=== PATIENT | female | born 1955 | race Caucasian/White ===

== ENCOUNTER 2019-05-14 07:00 | Emergency (ER) | payer OTHER ==
--- NOTE | 2019-05-14 07:38 | RAD REPORT ---
EXAM DESCRIPTION: CT - Ct Stroke Brain Wo Cont - 05/14/2019 7:26 am CLINICAL HISTORY: aphasia COMPARISON: none TECHNIQUE: Computed axial tomography of the head was obtained. All CT scans are performed using dose optimization technique as appropriate and may include automated exposure control or mA/KV adjustment according to patient size. FINDINGS: An intracranial bleed is not seen . The ventricles are normal in caliber. No extra-axial fluid collection is noted. Fluid within the sinuses/ mastoids is not seen. IMPRESSION: No acute intracranial abnormality is seen. If patient's symptoms persist MRI of the bra in would be recommended. Corrina of the emergency room was notified at 7:32 a.m. May 14, 2019
[2019-05-14 07:44] LABS: Absolute Lymphocytes (CBC) 2.5 K/uL (0.7-4.9); Basophils % 0.4 % (0-1.3); Eosinophils % 5.2 % (0-4.4); Hematocrit 48.1 % (36.0-45.0); Lymphocytes % 36.3 % (15.3-44.8); MPV 9.9 fL (7.6-11.3); RBC Red Blood Cell Count 5.34 M/uL (3.86-4.86)
[2019-05-14 07:48] LABS: Protime INR 1.02
[2019-05-14 08:09] LABS: ALT/SGPT 40 U/L (12-78); AST/SGOT 27 U/L (15-37); Albumin 3.9 g/dL (3.4-5.0); Alkaline Phosphatase 44 U/L (45-117); BUN Blood Urea Nitrogen 10 mg/dL (7-18); Bicarbonate 30 mmol/L (21-32); Bilirubin Direct 0.2 mg/dL (0-0.2); Bilirubin Total 0.4 mg/dL (0.2-1.0); CKMB Creatine Kinase MB < 1.0 ng/mL (0.3-3.6); Creatine Phosphokinase 52 U/L (26-192); Glucose Level 120 mg/dL (74-106); Lipase 251 U/L (73-393); Potassium 3.6 mmol/L (3.5-5.1); Protein, Total 8.5 g/dL (6.4-8.2); Sodium Level 137 mmol/L (136-145)
[2019-05-14 08:10] LABS: Thyroid Stimulating Hormone 15.5 uIU/mL (0.360-3.740)
--- NOTE | 2019-05-14 08:10 | RAD REPORT ---
EXAM DESCRIPTION: CTHead angio05/14/2019 7:53 am CLINICAL HISTORY: aphasia COMPARISON: None TECHNIQUE: CT angiogram of the head was obtained. 3D MIPS reconstruction performed. All CT scans are performed using dose optimization technique as appropriate and may include automated exposure control or mA/KV adjustment according to patient size. FINDINGS: The basilar, internal carotid, anterior cerebral, middle cerebral and posterior cerebral a rteries are normal caliber. An aneurysm is not seen. origin right posterior cerebral artery A significant stenosis is not noted. IMPRESSION: Unremarkable CT angiogram head.
--- NOTE | 2019-05-14 08:16 | RAD REPORT ---
EXAM DESCRIPTION: Blanca Angio05/14/2019 7:54 am CLINICAL HISTORY: aphasia COMPARISON: None TECHNIQUE: 50 cc Isovue 370 was administered intravenously. 3D MIP reconstruction performed All CT scans are performed using dose optimization technique as appropriate and may include automated exposure control or mA/KV adjustment according to patient size. FINDINGS: Bovine aorta. Left common carotid artery is tortuous. Minimal plaque within carotid arteries. Significant stenosis is not noted. The vertebral arteries are codominant without abnormality. IMPRESSION: No significant abnormality displayed. NASCET criteria used. Mild 0-49% stenosis Moderate 50-69% stenosis Severe 70-99% stenosis
--- NOTE | 2019-05-14 08:18 | RAD REPORT ---
EXAM DESCRIPTION: Mariana Single View05/14/2019 8:04 am CLINICAL HISTORY: Code stroke. Aphasia COMPARISON: none FINDINGS: The lungs appear clear of acute infiltrate. The heart is normal size IMPRESSION: No acute abnormalities displayed
[2019-05-14] MEDS ORDERED: ASPIRIN 81 MG CHEWABLE TABLET ONE (08:41)
--- NOTE | 2019-05-14 08:56 | ER ---
Nurse's Notes [facility] Name: Ryann Spence Age: 63 yrs Sex: Female : 1955 Arrival Date: 05/14/2019 Time: 07:01 Bed 13 Private MD: Diagnosis: Headache;Ischemic stroke;Volume depletion Presentation: 05/14 07:07 Presenting complaint: Patient states: headache X 5 days, woke up this morning and felt iw like she had a hard time speaking, pt states she woke up about an hour to two hours ago, went to bed at 1230 last night and she still had a headache but speech was normal, woke up this morning and still had the headache, noticed that she had a hard time texting her daughter at 0559 this morning, then noticed that she was having difficulty saying the right word, feels like she knows what she wants to say but can't find the right word. Transition of care: patient was not received from another setting of care. Pre-hospital glucose is not applicable to this patient. Onset of symptoms was May 14, 2019. Risk Assessment: Do you want to hurt yourself or someone else? Patient reports no desire to harm self or others. Initial Sepsis Screen: Does the patient meet any 2 criteria? No. Patient's initial sepsis screen is negative. Does the patient have a suspected source of infection? No. Patient's initial sepsis screen is negative. Care prior to arrival: None. 07:07 Method Of Arrival: Ambulatory 07:07 Acuity: WILLIAM 2 Triage Assessment: 07:34 The onset of the patients symptoms was May 14, 2019 at 00:30. Headache History: The iw patient has had previous headaches and this one is different than previous episodes, and this one is more severe than previous episodes. Stroke Activation: Symptom onset > 6 hours Physician: Stroke Attending; Name: ; Notified At: ; Arrived At: Physician: Chief Stroke Resident; Name: ; Notified At: ; Arrived At: Physician: Stroke Resident; Name: ; Notified At: ; Arrived At: Physician: ED Attending; Name: ; Notified At: ; Arrived At: Physician: ED Resident; Name: ; Notified At: ; Arrived At: Historical: - Allergies: 07:33 Sulfa (Sulfonamide Antibiotics); iw - Home Meds: 08:00 metoprolol succinate 50 mg oral Tb24 1 tab once daily [Active]; Premarin 0.45 mg Oral rb1 tab 1 tab once daily [Active]; rabeprazole 20 mg oral TbEC 1 tab once daily [Active]; venlafaxine 150 mg oral cp24 1 cap once daily [Active]; Synthroid 112 mcg Oral tab 1 tab once daily [Active]; atorvastatin 20 mg oral tab 1 tab once daily [Active]; losartan-hydrochlorothiazide 50-12.5 mg oral tab 1 tab once daily [Active]; Zyrtec 10 mg Oral cap [Active]; flaxseed oil 1,000 mg oral cap [Active]; Hair,Skin and Nails oral tab [Active]; turmeric curcumin 550 mg [Active]; Carmenza Aspirin 120 mg oral tab 1 tab once daily [Active]; Lutein blue [Active]; Livatone Plus [Active]; B complex-minerals oral oral [Active]; melatonin 5 mg Oral cap [Active]; Vitamin D3 oral oral [Active]; pantoprazole 40 mg oral TbEC 1 tab once daily [Active]; Centrum Silver oral oral [Active]; potassium gluconate 550 mg (90 mg) oral tab [Active]; Mag Ox [Active]; cyclobenzaprine 10 mg Oral tab 2 tab Bedtime [Active]; TruBiotics [Active]; 08:00 Metformin Oral [Active]; rb1 - PMHx: 08:00 Hypertension; Headaches; Hypothyroidism; rb1 08:00 Diabetes - NIDDM; rb1 - PSHx: 08:00 Cholecystectomy; Partial Hysterectomy; Tonsillectomy; rb1 - Immunization history:: Adult Immunizations up to date. - Ebola Screening: : Patient negative for fever greater than or equal to 101.5 degrees Fahrenheit, and additional compatible Ebola Virus Disease symptoms Patient denies exposure to infectious person Patient denies travel to an Ebola-affected area in the 21 days before illness onset No symptoms or risks identified at this time. - Social history:: Smoking status: Patient/guardian denies using tobacco. Screenin:53 Abuse screen: Denies threats or abuse. Denies injuries from another. Nutritional iw screening: No deficits noted. Tuberculosis screening: No symptoms or risk factors identified. Fall Risk IV access (20 points). 08:15 Patient has been NPO before screening. The patient is alert, able to follow commands. rb1 The patient does not exhibit slurred or garbled speech The patient is not exhibiting difficulty speaking. The patient does not exhibit difficulty understanding words. The patient is able to swallow own secretions with no drooling or need for suction. Patient tolerated one teaspoon of water. No drooling, immediate coughing, gurgling, or clearing of the throat was noted. The patient tolerated 90mL of water. No drooling, immediate coughing, gurgling, or clearing of the throat was noted. The patient passed the bedside swallow screening. Oral medications may be given as ordered. Contact Physician for further diet orders. Provider notified of bedside swallow screening results: Salomón Bhatia MD. Assessment: 07:10 VAN Scoring: Arm Drift: Patients demonstrates NO arm weakness. Patient is VAN Negative. iw 07:15 General: Appears in no apparent distress. comfortable, Behavior is calm, cooperative, rb1 talkative. Pain: Complains of pain in right faith and right side of forehead Pain radiates to neck Pain currently is 10 out of 10 on a pain scale. Neuro: Level of Consciousness is awake, alert, obeys commands, Oriented to person, place, time, situation, Speech Pt. stumbles over her words or finding the appropriate words, but speech is clear and understood.. Cardiovascular: Capillary refill < 3 seconds is brisk in bilateral fingers. Respiratory: Airway is patent Respiratory effort is even, unlabored, Respiratory pattern is regular, symmetrical. GI: Reports nausea, vomiting, since Wednesday05/13/19. : No signs and/or symptoms were reported regarding the genitourinary system. Derm: Skin is pink, warm \T\ dry. Musculoskeletal: Range of motion: intact in all extremities, Daughter reports that her mother ambulated into the ED from the parking lot. 07:45 T-PA (Activase) Screening: Indications: Treatment will start within 4.5 hours onset of rb1 symptoms: No. 07:46 Reassessment: pt transported to radiology via stretcher, with ODETTE Yee. iw 08:04 Reassessment: pt back to bed 13. iw 08:15 Patient has been NPO before screening. The patient is alert, and able to follow rb1 commands. The patient does not exhibit slurred or garbled speech. The patient is not exhibiting difficulty speaking. The patient does not exhibit difficulty understanding words. The patient is able to swallow own secretions with no drooling or need for suction. Patient tolerated one teaspoon of water. No drooling, immediate coughing, gurgling, or clearing of the throat was noted. The patient passed the bedside swallow screening. Oral medications may be given as ordered. Contact Physician for further diet orders. Provider notified of bedside swallow screening results: Salomón Bhatia MD. 08:39 Reassessment: Patient appears in no apparent distress at this time. Patient and/or rb1 family updated on plan of care and expected duration. Pain level reassessed. Patient is alert, oriented x 3, equal unlabored respirations, skin warm/dry/pink. Pt. is complaining of pain on the left side of her head. 09:00 Reassessment: Patient appears in no apparent distress at this time. Patient and/or rb1 family updated on plan of care and expected duration. Pain level reassessed. Patient is alert, oriented x 3, equal unlabored respirations, skin warm/dry/pink. Pt. c/o head hurting real bad. Provider notified. 09:15 Reassessment: Tried to call report to [facility] but was asked to call back in 10 rb1 minutes because the nurse was in a pt. room. 09:40 Reassessment: [facility] but ODETTE Wright was still not rb1 available. Yasmine in the transfer center reports that she told ODETTE Wright that she would have to receive report from EMS when they arrived because we could not delay transfer. 09:50 Reassessment: Gave report to ODETTE Wright. Information from the [facility] was given. All rb1 questions asked and answered. 10:00 Reassessment: Patient appears in no apparent distress at this time. Patient and/or rb1 family updated on plan of care and expected duration. Pain level reassessed. Patient is alert, oriented x 3, equal unlabored respirations, skin warm/dry/pink. 10:20 Reassessment: Gave report to [facility]. Information from the [facility] was given. All rb1 questions asked and answered. Vital Signs: 07:10 BP 160 / 115; Pulse 98; Resp 16; Pulse Ox 96% on R/A; iw 07:10 Weight 74.84 kg (R); Height 5 ft. 5 in. (165.10 cm) (R); rb1 07:45 BP 155 / 95; Pulse 94; Resp 18 S; Pulse Ox 96% on R/A; aa5 08:15 BP 159 / 109; Pulse 95; Resp 17; Temp 97.7(O); Pulse Ox 98% ; Pain 9/10; rb1 08:33 BP 176 / 98; Pulse 86; Resp 12; Temp 98.0(O); Pulse Ox 95% on R/A; Pain 8/10; rb1 08:45 BP 189 / 112; Pulse 80; Resp 15; Pulse Ox 96% on R/A; Pain 10/10; rb1 09:24 BP 164 / 94; Pulse 75; Resp 19; Pulse Ox 98% on R/A; Pain 10/10; rb1 09:58 BP 174 / 113; Pulse 72; Resp 20; Temp 98.2(O); Pulse Ox 97% on R/A; mh5 10:21 BP 185 / 88; Pulse 75; Resp 20; Temp 98.2(O); Pulse Ox 98% on R/A; Pain 8/10; rb1 07:10 Body Mass Index 27.46 (74.84 kg, 165.10 cm) rb1 [place] Coma Score: 07:10 Eye Response: spontaneous(4). Verbal Response: inappropriate words(3). Motor Response: rb1 obeys commands(6). Total: 13. 07:38 Eye Response: spontaneous(4). Verbal Response: oriented(5). Motor Response: obeys snw commands(6). Total: 15. 08:10 Eye Response: spontaneous(4). Verbal Response: inappropriate words(3). Motor Response: rb1 obeys commands(6). Total: 13. 09:10 Eye Response: spontaneous(4). Verbal Response: inappropriate words(3). Motor Response: rb1 obeys commands(6). Total: 13. 10:10 Eye Response: spontaneous(4). Verbal Response: inappropriate words(3). Motor Response: rb1 obeys commands(6). Total: 13. NIH Stroke Scale Scores: 07:17 NIHSS Score: 3 snw 07:54 NIHSS Score: 2 iw 10:00 NIHSS Score: 3 rb1 ED Course: 07:01 Patient arrived in ED. ds1 07:09 [facility]ins[facility] Sims [facility]-C [facility] snw 07:09 Salomón Bhatia MD is Attending Physician. snw 07:15 Patient has correct armband on for positive identification. Bed in low position. Call rb1 light in reach. Side rails up X2. ekg monitor on. Pulse ox on. NIBP on. Warm blanket given. 07:24 CT completed. Patient tolerated procedure well. Patient moved back from CT. bq 07:25 CT Stroke Brain w/o Contrast In Process Unspecified. EDMS 07:30 Initial lab(s) drawn, by me, sent to lab. Inserted saline lock: 20 gauge in right iw antecubital area, using aseptic technique. Blood collected. 07:33 Triage completed. iw 07:33 Arm band placed on. iw 07:42 initiated a transfer with Yasmine at the [facility] transfer center. eb 07:53 CT Head Angio In Process Unspecified. EDMS 07:53 CT Neck Angio In Process Unspecified. EDMS 07:[address] Jones the neurologist lactation consultant for [facility] with Dr. Bhatia for eb patient transfer consultation. 08:02 Stroke CXR 1 View In Process Unspecified. EDMS 08:09 Nakia Light, RN is Primary Nurse. rb1 08:30 EKG done, by ED staff, reviewed by Salomón Bhatia MD. mh5 08:45 connected the hospitalist lactation consultant for [facility] Dr. Quinones with Ainsley RODRIGUEZ for eb patient transfer consultation. 08:57 administrative approval given by Yasmine Ruvalcaba RN transfer coord/ patient has been eb accepted to [facility] 22 tower bed [address] Barclay. report to be called [phone]. 09:55 Urine collected: clean catch specimen, clear. mh5 09:56 UDS Sent. mh5 10:31 No provider procedures requiring assistance completed. Patient transferred, IV remains rb1 in place. Administered Medications: 08:26 Drug: Aspirin Chewable Tablet 324 mg Route: PO; rb1 08:50 Follow up: Response: No adverse reaction rb1 08:55 Drug: foLIC Acid 1 mg Route: IVPB; Site: right antecubital; rb1 09:12 Follow up: Response: No adverse reaction; IV Status: Completed infusion rb1 09:12 Drug: NS 0.9% 1000 ml Route: IV; Rate: 75 ml/hr; Site: right antecubital; rb1 10:31 Follow up: IV Status: Infusion continued upon transfer rb1 09:12 Drug: fentaNYL (PF) 25 mcg Route: IVP; Site: right antecubital; rb1 09:30 Follow up: Response: No adverse reaction; Pain is decreased rb1 09:44 Drug: Zofran 4 mg Route: IVP; Site: right antecubital; rb1 10:00 Follow up: Response: No adverse reaction; Nausea is decreased rb1 Point of Care Testing: Blood Glucose: 07:25 Blood Glucose: 109 mg/dL; iw Ranges: Outcome: 08:54 ER care complete, transfer ordered by . snw 10:31 Patient left the ED. rb1 10:31 Transferred by ground EMS to [facility], Transfer form completed. rb1 10:31 Condition: stable 10:31 Instructed on the need for transfer. NIH Stroke Scale - NIH Stroke Score Date: 05/14/2019 Time: 07:17 Total Score = 3 1a. Level of Consciousness (LOC) - 0(Alert) 1b. Level of Consciousness (LOC) (Year \T\ Age) - 0(Both) 1c. LOC Commands (Open \T\ Closes Eyes/Professor Of Chemistry) - 0(Both) 2. Best Gaze (Lateral Gaze Paresis) - 0(Normal) 3. Visual Field Loss - 0(No visual loss) 4. Facial Palsy - 0(Normal) 5a. Left Arm: Motor (10-second hold) - 0(No drift) 5b. Right Arm: Motor (10-second hold) - 0(No drift) 6a. Left Leg: Motor (5-second hold - always test supine) - 0(No drift) 6b. Right Leg: Motor (5-second hold - always test supine) - 0(No drift) 7. Limb Ataxia (finger/nose \T\ heel/pena - test with eyes open) - 0(Absent) 8. Sensory Loss (pinprick arms/legs/face) - 0(Normal) 9. Best Language: Aphasia (description/naming/reading) - 2(Severe aphasia) 10. Dysarthria (speech clarity - read or repeat words) - 1(Mild to Moderate) 11. Extinction and Inattention (visual/tactile/auditory/spatial/personal) - 0(No abnormality) Initials: [facility] NIH Stroke Scale - NIH Stroke Score Date: 05/14/2019 Time: 07:54 Total Score = 2 1a. Level of Consciousness (LOC) - 0(Alert) 1b. Level of Consciousness (LOC) (Year \T\ Age) - 0(Both) 1c. LOC Commands (Open \T\ Closes Eyes/Professor Of Chemistry) - 0(Both) 2. Best Gaze (Lateral Gaze Paresis) - 0(Normal) 3. Visual Field Loss - 0(No visual loss) 4. Facial Palsy - 0(Normal) 5a. Left Arm: Motor (10-second hold) - 0(No drift) 5b. Right Arm: Motor (10-second hold) - 0(No drift) 6a. Left Leg: Motor (5-second hold - always test supine) - 0(No drift) 6b. Right Leg: Motor (5-second hold - always test supine) - 0(No drift) 7. Limb Ataxia (finger/nose \T\ heel/pena - test with eyes open) - 0(Absent) 8. Sensory Loss (pinprick arms/legs/face) - 0(Normal) 9. Best Language: Aphasia (description/naming/reading) - 1(Mild to moderate aphasia) 10. Dysarthria (speech clarity - read or repeat words) - 1(Mild to Moderate) 11. Extinction and Inattention (visual/tactile/auditory/spatial/personal) - 0(No abnormality) Initials: NIH Stroke Scale - NIH Stroke Score Date: 05/14/2019 Time: 10:00 Total Score = 3 1a. Level of Consciousness (LOC) - 0(Alert) 1b. Level of Consciousness (LOC) (Year \T\ Age) - 1(One) 1c. LOC Commands (Open \T\ Closes Eyes/Professor Of Chemistry) - 0(Both) 2. Best Gaze (Lateral Gaze Paresis) - 0(Normal) 3. Visual Field Loss - 0(No visual loss) 4. Facial Palsy - 0(Normal) 5a. Left Arm: Motor (10-second hold) - 0(No drift) 5b. Right Arm: Motor (10-second hold) - 0(No drift) 6a. Left Leg: Motor (5-second hold - always test supine) - 0(No drift) 6b. Right Leg: Motor (5-second hold - always test supine) - 0(No drift) 7. Limb Ataxia (finger/nose \T\ heel/pena - test with eyes open) - 0(Absent) 8. Sensory Loss (pinprick arms/legs/face) - 0(Normal) 9. Best Language: Aphasia (description/naming/reading) - 1(Mild to moderate aphasia) 10. Dysarthria (speech clarity - read or repeat words) - 1(Mild to Moderate) 11. Extinction and Inattention (visual/tactile/auditory/spatial/personal) - 0(No abnormality) Initials: rb1 Signatures: Dispatcher [employer] EDMS Levi, Ainsley, BATCH ANALYST-C BATCH ANALYST-Csnw Brock, Cally Aquino, Sarika ds1 Cynthia Boss RN RN iw Whit Phillips RN RN aa5 Nakia Light, RN RN rb1 Norah East 5 Nessa Major Corrections: (The following items were deleted from the chart) 07:47 07:07 Presenting complaint: Patient states: headache X 5 days, woke up this iw morning and felt like she had a hard time speaking, pt states she woke up about an hour ago, went to bed at 1230 last night and was normal iw 07:49 07:07 Presenting complaint: Patient states: headache X 5 days, woke up this iw morning and felt like she had a hard time speaking, pt states she woke up about an hour to two hours ago, went to bed at 1230 last night and she still had a headache but speech was normal, woke up this morning and still had the headache, also had a hard time texting her daughter at 0559 this morning iw
--- NOTE | 2019-05-14 08:56 | EDPHYS ---
Physician Documentation [facility] – [place], [place] Name: Ryann Spence Age: 63 yrs Sex: Female : 1955 Arrival Date: 05/14/2019 Time: 07:01 Bed 13 Private MD: ED Physician Salomón Bhatia HPI: 05/14 07:48 This 63 yrs old Female presents to ER via Ambulatory with complaints of snw Headache. 07:48 The patient complains of pain to the right side of forehead and right latter day. The snw patient describes the headache as aching, a pressure, unrelenting. Onset: The symptoms/episode began/occurred 5 day(s) ago, and became persistent. Associated signs and symptoms: Pertinent positives: malaise, nausea, vomiting. Severity of symptoms: At its worst the pain was moderate, severe, the "worst in my life". Headache History: Denies prior headaches. The patient has not experienced similar symptoms in the past. The patient has not recently seen a physician. pt has not taken BP meds in 4 days second to insurance changes, awoke this am 2 hours prior to arrival and then noted severe problems with getting thoughts to text or in speech, pt with misuse of words/ideas but is aware when the words come out that they are incorrect but just can't get the right ones out. Historical: - Allergies: 07:33 Sulfa (Sulfonamide Antibiotics); iw - Home Meds: 08:00 metoprolol succinate 50 mg oral Tb24 1 tab once daily [Active]; Premarin 0.45 mg Oral rb1 tab 1 tab once daily [Active]; rabeprazole 20 mg oral TbEC 1 tab once daily [Active]; venlafaxine 150 mg oral cp24 1 cap once daily [Active]; Synthroid 112 mcg Oral tab 1 tab once daily [Active]; atorvastatin 20 mg oral tab 1 tab once daily [Active]; losartan-hydrochlorothiazide 50-12.5 mg oral tab 1 tab once daily [Active]; Zyrtec 10 mg Oral cap [Active]; flaxseed oil 1,000 mg oral cap [Active]; Hair,Skin and Nails oral tab [Active]; turmeric curcumin 550 mg [Active]; Carmenza Aspirin 120 mg oral tab 1 tab once daily [Active]; Lutein blue [Active]; Livatone Plus [Active]; B complex-minerals oral oral [Active]; melatonin 5 mg Oral cap [Active]; Vitamin D3 oral oral [Active]; pantoprazole 40 mg oral TbEC 1 tab once daily [Active]; Centrum Silver oral oral [Active]; potassium gluconate 550 mg (90 mg) oral tab [Active]; Mag Ox [Active]; cyclobenzaprine 10 mg Oral tab 2 tab Bedtime [Active]; TruBiotics [Active]; 08:00 Metformin Oral [Active]; rb1 - PMHx: 08:00 Hypertension; Headaches; Hypothyroidism; rb1 08:00 Diabetes - NIDDM; rb1 - PSHx: 08:00 Cholecystectomy; Partial Hysterectomy; Tonsillectomy; rb1 - Immunization history:: Adult Immunizations up to date. - Ebola Screening: : Patient negative for fever greater than or equal to 101.5 degrees Fahrenheit, and additional compatible Ebola Virus Disease symptoms Patient denies exposure to infectious person Patient denies travel to an Ebola-affected area in the 21 days before illness onset No symptoms or risks identified at this time. - Social history:: Smoking status: Patient/guardian denies using tobacco. ROS: 07:45 Eyes: Negative for injury, pain, redness, and discharge, ENT: Negative for injury, snw pain, and discharge, Neck: Negative for injury, pain, and swelling, Cardiovascular: Negative for chest pain, palpitations, and edema, Respiratory: Negative for shortness of breath, cough, wheezing, and pleuritic chest pain, Abdomen/GI: Negative for abdominal pain, diarrhea, and constipation, +nausea and vomiting Back: Negative for injury and pain, : Negative for injury, bleeding, discharge, and swelling, MS/Extremity: Negative for injury and deformity, Skin: Negative for injury, rash, and discoloration, Psych: Negative for depression, anxiety, suicide ideation, homicidal ideation, and hallucinations. 07:45 Constitutional: Positive for fatigue, malaise, poor PO intake. 07:45 Neuro: Positive for headache, of the right side of forehead and right latter day, severe speech changes this am. Exam: 07:17 Head/Face: Normocephalic, atraumatic. Eyes: Pupils equal round and reactive to light, snw extra-ocular motions intact. Lids and lashes normal. Conjunctiva and sclera are non-icteric and not injected. Cornea within normal limits. Periorbital areas with no swelling, redness, or edema. 07:17 Neck: Trachea midline, no thyromegaly or masses palpated, and no cervical lymphadenopathy. Supple, full range of motion without nuchal rigidity, or vertebral point tenderness. No Meningismus. Chest/axilla: Normal chest wall appearance and motion. Nontender with no deformity. No lesions are appreciated. Cardiovascular: Regular rate and rhythm with a normal S1 and S2. No gallops, murmurs, or rubs. Normal PMI, no JVD. No pulse deficits. Respiratory: Lungs have equal breath sounds bilaterally, clear to auscultation and percussion. No rales, rhonchi or wheezes noted. No increased work of breathing, no retractions or nasal flaring. Abdomen/GI: Soft, non-tender, with normal bowel sounds. No distension or tympany. No guarding or rebound. No evidence of tenderness throughout. Back: No spinal tenderness. No costovertebral tenderness. Full range of motion. 07:17 Constitutional: The patient appears alert, awake, anxious, restless. 07:17 ENT: Exam is negative for 07:17 Skin: Turgor: is poor. 07:17 Neuro: Orientation: is normal, Mentation: able to follow commands, Memory: is normal, Cranial nerves: Speech is dysarthric, Cerebellar function: is grossly normal based on the patient's age, Gait: not tested. Babinski testing is normal, seizure activity, is not displayed by the patient, Abnormal movements: there are no abnormal movements. 07:17 Psych: Exam negative for Vital Signs: 07:10 BP 160 / 115; Pulse 98; Resp 16; Pulse Ox 96% on R/A; iw 07:10 Weight 74.84 kg (R); Height 5 ft. 5 in. (165.10 cm) (R); rb1 07:45 BP 155 / 95; Pulse 94; Resp 18 S; Pulse Ox 96% on R/A; aa5 08:15 BP 159 / 109; Pulse 95; Resp 17; Temp 97.7(O); Pulse Ox 98% ; Pain 9/10; rb1 08:33 BP 176 / 98; Pulse 86; Resp 12; Temp 98.0(O); Pulse Ox 95% on R/A; Pain 8/10; rb1 08:45 BP 189 / 112; Pulse 80; Resp 15; Pulse Ox 96% on R/A; Pain 10/10; rb1 09:24 BP 164 / 94; Pulse 75; Resp 19; Pulse Ox 98% on R/A; Pain 10/10; rb1 09:58 BP 174 / 113; Pulse 72; Resp 20; Temp 98.2(O); Pulse Ox 97% on R/A; mh5 10:21 BP 185 / 88; Pulse 75; Resp 20; Temp 98.2(O); Pulse Ox 98% on R/A; Pain 8/10; rb1 07:10 Body Mass Index 27.46 (74.84 kg, 165.10 cm) rb1 NIH Stroke Scale Scores: 07:17 NIHSS Score: 3 snw 07:54 NIHSS Score: 2 iw 10:00 NIHSS Score: 3 rb1 [place] Coma Score: 07:10 Eye Response: spontaneous(4). Verbal Response: inappropriate words(3). Motor Response: rb1 obeys commands(6). Total: 13. 07:38 Eye Response: spontaneous(4). Verbal Response: oriented(5). Motor Response: obeys snw commands(6). Total: 15. 08:10 Eye Response: spontaneous(4). Verbal Response: inappropriate words(3). Motor Response: rb1 obeys commands(6). Total: 13. 09:10 Eye Response: spontaneous(4). Verbal Response: inappropriate words(3). Motor Response: rb1 obeys commands(6). Total: 13. 10:10 Eye Response: spontaneous(4). Verbal Response: inappropriate words(3). Motor Response: rb1 obeys commands(6). Total: 13. MDM: 07:09 Patient medically screened. snw 07:15 Data reviewed: vital signs, nurses notes, lab test result(s), EKG. Data interpreted: snw Pulse oximetry: on room air is 96 %. Interpretation: acceptable. Counseling: I had a detailed discussion with the patient and/or guardian regarding: the historical points, exam findings, and any diagnostic results supporting the discharge/admit diagnosis, the presence of at least one elevated blood pressure reading (>120/80) during this emergency department visit, lab results, radiology results. Physician consultation: Salomón Bhatia MD was called at 07:15, was contacted at 07:15. 07:47 ED course: Difficult to discern when speech changes occurred, CTA ordered and Neuro at snw [facility] paged.. 07:50 ED course: Paging [facility] neurology for consultation and transfer. Patient was awake rn when aware of symptoms, attempted to text daughter \\T\\ about 0550 this AM and unable to convey her thoughts. NO other focal neurological findings. + high risk for stroke given uncontrolled BP, has not been on meds, HLD, and known carotid disease along with strong family hx of stroke and NV. CT head negative, in CT getting CTA head and neck. Patient has been having headache for 5 days, woke up feeling the same but did not try and communicate until texting daughter, so difficult to assess true onset and last known normal. . 08:01 ED course: Consulted Dr. Jones, states agrees that onset is difficult to assess, and rn currently does not recommend TPA, is in [place] getting CTA, will transfer to [facility] for neuro consult and possible interventional procedures. Symptoms mildly improving.. 08:14 ED course: Negative CTA head/neck, will transfer to neuro tele under hospitalist. NO rn TPA. Updated patient and daughter. . 08:50 Physician consultation: Dr. Barclay was called at 08:50, was contacted at 08:50, snw regarding regarding transfer, to [facility]. kindly accepts admission to tele bed with Neuro consult. 05/14 07:15 Order name: Ckmb; Complete Time: 08:13 w 05/14 07:15 Order name: CPK; Complete Time: 08:13 05/14 07:15 Order name: Magnesium; Complete Time: 08:13 w 05/14 07:15 Order name: Lipase; Complete Time: 08:13 w 05/14 07:15 Order name: Hepatic Function; Complete Time: 08:13 w 05/14 07:15 Order name: UDS; Complete Time: 10:11 w 05/14 07:15 Order name: Basic Metabolic Panel; Complete Time: 08:13 w 05/14 07:15 Order name: CBC with Diff; Complete Time: 07:54 snw 05/14 07:15 Order name: Protime (+inr); Complete Time: 07:54 w 05/14 07:15 Order name: Ptt, Activated; Complete Time: 07:54 snw 05/14 07:15 Order name: CT Stroke Brain w/o Contrast; Complete Time: 07:43 snw 05/14 07:17 Order name: TSH; Complete Time: 08:25 snw 05/14 08:11 Order name: T4 Free; Complete Time: 08:25 EDMS 05/14 10:22 Order name: Urine Dipstick--Ancillary (enter results); Complete Time: 10:58 eb 05/14 07:15 Order name: Stroke CXR 1 View; Complete Time: 08:19 snw 05/14 07:15 Order name: EKG; Complete Time: 07:18 snw 05/14 07:15 Order name: Accucheck; Complete Time: 07:54 snw 05/14 07:15 Order name: Cardiac monitoring; Complete Time: 07:54 snw 05/14 07:15 Order name: EKG - Nurse/Tech; Complete Time: 08:33 snw 05/14 07:15 Order name: IV Saline Lock; Complete Time: 08:09 snw 05/14 07:15 Order name: Labs collected and sent; Complete Time: 08:10 snw 05/14 07:15 Order name: NPO; Complete Time: 08:10 snw 05/14 07:15 Order name: O2 Per Protocol; Complete Time: 08:10 snw 05/14 07:37 Order name: CT Head Angio; Complete Time: 08:13 snw 05/14 07:45 Order name: CT Neck Angio; Complete Time: 08:19 snw 05/14 07:15 Order name: O2 Sat Monitoring; Complete Time: 08:10 snw 05/14 07:15 Order name: Stroke Swallow Screen; Complete Time: 08:16 snw Administered Medications: 08:26 Drug: Aspirin Chewable Tablet 324 mg Route: PO; rb1 08:50 Follow up: Response: No adverse reaction rb1 08:55 Drug: foLIC Acid 1 mg Route: IVPB; Site: right antecubital; rb1 09:12 Follow up: Response: No adverse reaction; IV Status: Completed infusion rb1 09:12 Drug: NS 0.9% 1000 ml Route: IV; Rate: 75 ml/hr; Site: right antecubital; rb1 10:31 Follow up: IV Status: Infusion continued upon transfer rb1 09:12 Drug: fentaNYL (PF) 25 mcg Route: IVP; Site: right antecubital; rb1 09:30 Follow up: Response: No adverse reaction; Pain is decreased rb1 09:44 Drug: Zofran 4 mg Route: IVP; Site: right antecubital; rb1 10:00 Follow up: Response: No adverse reaction; Nausea is decreased rb1 Point of Care Testing: Blood Glucose: 07:25 Blood Glucose: 109 mg/dL; iw Ranges: Critical Glucose Levels:Adult <50 mg/dl or >400 mg/dl <40 mg/dl or >180 mg/dl Disposition: 08:52 Chart complete. snw 11:42 Co-signature as Attending Physician, Salomón Bhatia MD. rn Disposition: 05/14/19 08:54 Transfer ordered to [facility]. Diagnosis are Headache, Ischemic stroke, Volume depletion. - Reason for transfer: Higher level of care. - Accepting physician is Dr. Barclay. - Condition is Stable. - Problem is new. - Symptoms have improved. NIH Stroke Scale - NIH Stroke Score Date: 05/14/2019 Time: 07:17 Total Score = 3 1a. Level of Consciousness (LOC) - 0(Alert) 1b. Level of Consciousness (LOC) (Year \\T\\ Age) - 0(Both) 1c. LOC Commands (Open \\T\\ Closes Eyes/Traffic Control Supervisor) - 0(Both) 2. Best Gaze (Lateral Gaze Paresis) - 0(Normal) 3. Visual Field Loss - 0(No visual loss) 4. Facial Palsy - 0(Normal) 5a. Left Arm: Motor (10-second hold) - 0(No drift) 5b. Right Arm: Motor (10-second hold) - 0(No drift) 6a. Left Leg: Motor (5-second hold - always test supine) - 0(No drift) 6b. Right Leg: Motor (5-second hold - always test supine) - 0(No drift) 7. Limb Ataxia (finger/nose \\T\\ heel/pena - test with eyes open) - 0(Absent) 8. Sensory Loss (pinprick arms/legs/face) - 0(Normal) 9. Best Language: Aphasia (description/naming/reading) - 2(Severe aphasia) 10. Dysarthria (speech clarity - read or repeat words) - 1(Mild to Moderate) 11. Extinction and Inattention (visual/tactile/auditory/spatial/personal) - 0(No abnormality) Initials: [facility] NIH Stroke Scale - NIH Stroke Score Date: 05/14/2019 Time: 07:54 Total Score = 2 1a. Level of Consciousness (LOC) - 0(Alert) 1b. Level of Consciousness (LOC) (Year \\T\\ Age) - 0(Both) 1c. LOC Commands (Open \\T\\ Closes Eyes/Traffic Control Supervisor) - 0(Both) 2. Best Gaze (Lateral Gaze Paresis) - 0(Normal) 3. Visual Field Loss - 0(No visual loss) 4. Facial Palsy - 0(Normal) 5a. Left Arm: Motor (10-second hold) - 0(No drift) 5b. Right Arm: Motor (10-second hold) - 0(No drift) 6a. Left Leg: Motor (5-second hold - always test supine) - 0(No drift) 6b. Right Leg: Motor (5-second hold - always test supine) - 0(No drift) 7. Limb Ataxia (finger/nose \\T\\ heel/pena - test with eyes open) - 0(Absent) 8. Sensory Loss (pinprick arms/legs/face) - 0(Normal) 9. Best Language: Aphasia (description/naming/reading) - 1(Mild to moderate aphasia) 10. Dysarthria (speech clarity - read or repeat words) - 1(Mild to Moderate) 11. Extinction and Inattention (visual/tactile/auditory/spatial/personal) - 0(No abnormality) Initials: NIH Stroke Scale - NIH Stroke Score Date: 05/14/2019 Time: 10:00 Total Score = 3 1a. Level of Consciousness (LOC) - 0(Alert) 1b. Level of Consciousness (LOC) (Year \\T\\ Age) - 1(One) 1c. LOC Commands (Open \\T\\ Closes Eyes/Traffic Control Supervisor) - 0(Both) 2. Best Gaze (Lateral Gaze Paresis) - 0(Normal) 3. Visual Field Loss - 0(No visual loss) 4. Facial Palsy - 0(Normal) 5a. Left Arm: Motor (10-second hold) - 0(No drift) 5b. Right Arm: Motor (10-second hold) - 0(No drift) 6a. Left Leg: Motor (5-second hold - always test supine) - 0(No drift) 6b. Right Leg: Motor (5-second hold - always test supine) - 0(No drift) 7. Limb Ataxia (finger/nose \\T\\ heel/pena - test with eyes open) - 0(Absent) 8. Sensory Loss (pinprick arms/legs/face) - 0(Normal) 9. Best Language: Aphasia (description/naming/reading) - 1(Mild to moderate aphasia) 10. Dysarthria (speech clarity - read or repeat words) - 1(Mild to Moderate) 11. Extinction and Inattention (visual/tactile/auditory/spatial/personal) - 0(No abnormality) Initials: rb1 Signatures: Dispatcher [employer] EDMS Ainsley Sims, RESORT MANAGER-C RESORT MANAGER-Csnw Cynthia Boss, ODETTE RN Salomón Giles MD MD rn Barber, Rebecca, RN RN rb1 Corrections: (The following items were deleted from the chart) 10:31 08:54 05/14/2019 08:54 Transfer ordered to [facility]. rb1 Diagnosis is Headache; Ischemic stroke; Volume depletion. Reason for transfer: Higher level of care. Accepting physician is Dr. Barclay. Condition is Stable. Problem is new. Symptoms have improved. snw
[2019-05-14] MEDS ORDERED: FOLIC ACID 1 MG in NA CHLORIDE 0.9% 50 ML IV SCH (09:00)
[2019-05-14] MEDS ORDERED: NA CHLORIDE 0.9% 1,000 ML ONE (09:22)
[2019-05-14] MEDS ORDERED: FENTANYL CITR 100 MCG/2 ML ONE (09:22)
[2019-05-14] MEDS ORDERED: ONDANSETRON 4 MG/2 ML VIAL ONE (10:01)
[2019-05-14 10:10] LABS: Barbiturates NEGATIVE (NEGATIVE); Benzodiazepines NEGATIVE (NEGATIVE); Cocaine NEGATIVE (NEGATIVE); METHAMPHETAM NEGATIVE (NEGATIVE); Methadone NEGATIVE (NEGATIVE); Opiates NEGATIVE (NEGATIVE); Phencyclidine NEGATIVE (NEGATIVE); THC Cannibis NEGATIVE (NEGATIVE)
[2019-05-14 10:33] LABS: Urine Blood NEGATIVE (NEG); Urine Glucose NEGATIVE (NEG); Urine Protein NEGATIVE (NEG); Urine Specific Gravity 1.015 (1.005-1.030); Urine pH 8.5 (5.0-7.0)
--- NOTE | 2019-05-14 20:10 | EKG ---
Test Date: 2019-05-14 Test Time: 08:29:41 Pit Laborer: FELISHA MEASUREMENT RESULTS: Intervals: Rate: 82 [place]: 122 QRSD: 76 QT: 382 QTc: 446 [place]: P: 47 [place]: 122 QRS: 15 T: 46 INTERPRETIVE STATEMENTS: Normal sinus rhythm Anteroseptal infarct, age undetermined Abnormal ECG No previous ECG available for comparison Electronically Signed On 05-14-19 20:08:48 CDT by Oscar Bello
== END 2019-05-14 10:31 | disposition short-term general hospital (02) ==
LOC: ER 07:00
DX: I63.9 Cerebral infarction, unspecified (principal); E86.9 Volume depletion, unspecified; I10 Essential (primary) hypertension; R29.703 NIHSS score 3; E11.9 Type 2 diabetes mellitus without complications; E03.9 Hypothyroidism, unspecified; Z79.82 Long term (current) use of aspirin; Z88.2 Allergy status to sulfonamides
CPT/HCPCS: 36415; 70450; 70496; 70498; 71045; 80048; 80076; 80307; 81003; 82550; 82553; 82962; 83690; 83735; 84439; 84443; 85025; 85610; 85730; 93005; 96361; 96365; 96375; 99285; J2405; J3010; J7030; Q9967

== ENCOUNTER 2020-11-08 18:22 | Emergency (ER) | payer OTHER, SELFPAY ==
--- OUTSIDE RECORDS SUMMARY | 2020-11-08 18:25 | XMS REPORT | Clinical Summary ---
:1955 Author Organization [facility] Address [address] [place] [address] Care Team Providers Name Role Phone Unavailable Primary Care Provider Unavailable Allergies Active Allergy Reactions Severity Noted Date Comments Sulfa (Sulfonamide Antibiotics) 9 Medications Medication Sig Dispensed Refills Start Date End Date Status ixekizumab (TALTZ Taltz Autoinjector 0 Active AUTOINJECTOR) 80 mg/mL 80 mg/mL AtIn subcutaneous losartan-hydroCHLOROth Take 1 tablet by 0 Active iazide (HYZAAR) 100-25 mouth daily. mg per tablet venlafaxine 150 mg Take 150 mg by 0 Active TR24 mouth daily. pantoprazole Take 40 mg by 0 Act joselyn (PROTONIX) 40 MG mouth daily. tablet metFORMIN (GLUCOPHAGE) Take 1,000 mg by 0 Active 1000 MG tablet mouth 2 (two) times daily with breakfast and dinner. cyclobenzaprine Take 10 mg by 0 Active (FLEXERIL) 10 MG mouth 2 (two) tablet times daily. levothyroxine Take 88 mcg by 0 A ctive (SYNTHROID) 88 MCG mouth Every tablet morning on an empty stomach. Active Problems Problem Noted Date Essential hypertension 05/17/2019 Gastroesophageal reflux disease 05/17/2019 Hyperlipidemia 05/17/2019 Obstructive sleep apnea syndrome 05/17/2019 Psoriatic arthritis 05/17/2019 Type 2 diabetes mellitus with hyperglycemia 05/17/2019 Hypothyroidism 05/17/2019 Expressive aphasia 05/15/2019 CVA (cerebral vascular accident) 05/14/2019 Social History Tobacco Use Types Packs/Day Years Used Date Never Smoker Smokeless Tobacco: Never Used Sex Assigned at Date Recorded Not on file Last Filed Vital Signs Not on file Plan of Treatment Health Maintenance Due Date Last Done Comments BREAST CANCER SCREENING 1955 COLON CANCER SCREENING COLONOSCOPY 1955 DIABETIC EYE EXAM 1965 DIABETIC FOOT EXAM 1965 URINE MICROALBUMIN 1965 CERVICAL CANCER SCREENING PAP ONLY (Age [birth year]05/21/1976 21-65) HEMOGLOBIN A1C 11/14/2019 05/14/2019 PNEUMOCOCCAL 65+ YRS (1 of 1 - 2020 [id number]) INFLUENZA VACCINE (#1) 2020 LIPID PANEL 05/15/2022 05/15/2019, 05/14/2019 Results Not on fileafter 11/08/2019 Advance Directives For more information, please contact: [phone] Code Status Date Activated Date Inactivated Comments Full Code 05/14/2019 12:52 PM 05/18/2019 6:12 PM This code status was determined by: Patient Full Code 05/14/2019 12:52 PM 05/14/2019 12:52 PM This code status was determined by: Patient
--- OUTSIDE RECORDS SUMMARY | 2020-11-08 18:25 | XMS REPORT | Continuity of Care Document ---
:1955 Author Organization [facility] [employer] Care Team Providers Name Role Phone [employer] Unavailable Un available Problems Problem Status Onset Classification Date Comments Sourc e Date Reported 696.0 - Active [facility] 4 [facility] ARTHR Medications No Data Provided for This Section Allergies, Adverse Reactions, Alerts No Known Medication Allergies Immunizations No Data Provided for This Section Results No Data Provided for This Section Pathology Reports No Data Provided for This Section Diagnostic Reports Report Value Date Source Spine cervical minimum EXAM: CERVICAL SPINE 5 VIEWS 05/18/2014 [facility] of 4 views DATE: Order Observation End Time: May 18, 2014 02:01:22 PM INDICATION: Pain. neck pain TECHNIQUE : AP, lateral, ope n-mouth odontoid, RPO and LPO radiographs of the cervical spine show from the skull base through T1. COMPARISON: None FINDINGS: No fracture, malalignment or other bony abnormality is identified. No prevertebral or paraspinous soft tissue abnormality is identified. Diffuse spondylotic changes are identified with neural foramina narrowing of the left C5/6 levels. IMPRESSION: Normal alignmen t. No fractures. Diffuse spondylotic changes of the cervical spine with neural foramina narrowing of the left C5/C6 level. Consultation Notes No Data Provided for This Section Discharge Summaries No Data Provided for This Section History and Physicals No Data Provided for This Section Vital Signs No Data Provided for This Section Encounters Location Location Encounter Encounter Reason Attending ADM [place] Stat us Source Details Type Number For Provider Date Date Visit [facility] Outpt Diag [id number] [place] 05/18 05/19 [facility] Procedures No Data Provided for This Section Assessment and Plan No Data Provided for This Section Plan of Care No Data Provided for This Section Social History No Data Provided for This Section Family History No Data Provided for This Section Advance Directives No Data Provided for This Section Functional Status No Data Provided for This Section
--- OUTSIDE RECORDS SUMMARY | 2020-11-08 18:26 | XMS REPORT | Continuity of Care Document ---
:1955 Author Organization [facility] t Address [address] [place] [address] Care Team Providers Name Role Phone PIETER MERCADO Attending Clinician Unavailable Gina Eli Attending Clinician PIETER MERCADO Admitting Clinician Unavailable Problems Condition Condition Condition Status Onset Resolution Last Treating Co mments Source Name Details Category Date Date Treatment Clinician Date Essential Essential Disease Active [facility] hypertensi hypertensi 05-17 [facility] - on on 00:00: Medical 00 Center Gastroesop Gastroesop Disease Active [facility] hageal hageal 05[facility]17 [facility] reflux reflux 00:00: Medical disease disease 00 Center Hyperlipid Hyperlipid Disease Active [facility] emia emia 05-17 [facility] - 00:[facility]: [facility] 00 Center Obstructiv Obstructiv Disease Active [facility] e sleep e sleep 05-17 [facility] - apnea apnea 00:00: Medical syndrome syndrome 00 Center Psoriatic Psoriatic Disease Active [facility] arthritis arthritis 05-17 [facility] - 00:[facility]: Medical 00 Center Type 2 Type [address] [facility] diabetes diabetes 05-17 [facility] - mellitus mellitus 00:00: Medica l with with 00 Center hyperglyce hyperglyce butch butch Hypothyroi Hypothyroi Disease Active [facility] dism dism 05-17 [facility] - 00:[facility]: Medical 00 Center Expressive Expressive Disease Active [facility] aphasia aphasia 05-15 [facility] - 00:[facility]: Medical 00 Center CVA CVA Disease Active [facility] (cerebral (cerebral 7-14 [facility] - vascular vascular 00:00: Medica l accident) accident) 00 Cent er 696.0 - Diagnosis Active 2014-05-18 Me moria PSORIATIC 05-18 13:13:00 l ARTHR 696.0 - 00:01: [place] PSORIATIC 00 ARTHR Active 05/18/2014 GEOVANNA Barnard Allergies, Adverse Reactions, Alerts Allergy Allergy Status Severity Reaction(s) Onset Inactive Treating Comm ents Source Name Type Date Date Clinician Sulfa Drug Active [facility] (Sulfona Allergy 05-14 [facility] - mide 00:00: Medical Antibiot 00 Center ics) Social History Social Habit Start Date Stop Date Quantity Comments Source Sex Assigned At [facility] Tobacco use and 2019-05-29 2019-05-29 Never used [facility] - exposure 00:00:00 00:00:00 Medical Center Smoking Status Start Date Stop Date Source Never smoker [facility] [place] Medications Ordered Filled Start Stop Current Ordering Indication Dosage Frequency Signature Comments Components Source Medication Medication Date Date Medication? Clinician (SIG) Name Name ixekizumab Yes Taltz [facility] (TALTZ 7-18 Autoinject [facility] - AUTOINJECTO 16:12: or 80 Medic al R) 80 mg/mL 14 mg/mL Center AtIn subcutaneo us losartan-hy Yes 1{tbl} QD Take [address] droCHLOROth 7-18 tablet by [facility] - iazide 16:12: mouth Medical (HYZAAR) 14 daily. Center 100-25 mg per tablet venlafaxine Yes 150mg QD Take [address] 150 mg TR24 7-18 mg by [facility] - 16:12: mouth Medical 14 daily. Center pantoprazol Yes 40mg QD Take [address] [facility] e 7-18 by mouth [facility] - (PROTONIX) 16:12: daily. Medic al 40 MG 14 Center tablet metFORMIN Yes 1000mg Take 1,[address] [facility] [address] (GLUCOPHAGE 7-18 mg by [facility] - ) 1000 MG 16:12: mouth 2 Medic al tablet 14 (two) Center times daily with breakfast and dinner. cyclobenzap Yes 10mg Q.5D Take [address] [facility] rine 7-18 by mouth 2 [facility] - (FLEXERIL) 16:12: (two) Medica l 10 MG 14 times Center tablet daily. levothyroxi 2019-0 Yes 88ug Take [address] ne 7-18 mcg by [facility] - (SYNTHROID) 16:12: mouth Medic al 88 MCG 14 Every Center tablet morning on an empty stomach. Procedures This patient has no known procedures. Plan of Care Planned Activity Planned Date Details Comments Source Future Scheduled 2022-05-[address] [facility] [address] [facility] - Test 00:00:00 (procedure) [code = Medical Center 38297096] Future Scheduled 2020-07-02 INFLUENZA VACCINE (#1) [facility] - Test 00:00:00 [code = INFLUENZA Medical Ce nter VACCINE (#1)] Future Scheduled 2020 PNEUMOCOCCAL 65+ YRS [facility] - Test 00:00:00 (1 of 1 - Medical Center [id number] PCV13) [code = PNEUMOCOCCAL 65+ YRS (1 of 1 - [id number] PCV13)] Future Scheduled 2019-11-[address] Norah kes - Test 00:00:00 measurement [facility] Center (procedure) [code = 29363871] Future Scheduled [address] [facility] - Test 00:00:00 [facility] cervix (procedure) [code = 775582455] Future Scheduled 1965 DIABETIC EYE EXAM [facility] - Test 00:00:00 [code = DIABETIC EYE Medical Center EXAM] Future Scheduled [address] [facility] - Test 00:00:00 examination Medical Center (regime/therapy) [code = 537257700] Future Scheduled 1965 Urine screening for [facility] - Test 00:00:00 protein (procedure) Medical Center [code = 097553763] Future Scheduled [address] [facility] - Test 00:00:00 [facility] breast (procedure) [code = 075007478] Future Scheduled [address] [facility] - Test 00:00:00 [facility] colon (procedure) [code = 694510847] Encounters Start End Encounter Admission Attending Care Care Encounter Source Date/Time Date/Time Type Type Clinicians Facility Department ID 2014-05-18 2014-05-18 Outpatient JOBY Eli COSME [id number] 13:00:00 23:59:00 Gisell Fuentes 01 Results Test Description Test Time Test Comments Results Result Comments Source POCT-GLUCOSE METER 2019-05-18 12:55:00 Test Item Value Reference Range Interpretation Comme nts POC-GLUCOSE METER (BEAKER) (test 143 mg/dL 70-110 H TESTED AT [facility] [address] [facility] [place] [address] POCT-GLUCOSE [id number] 07:59:00 Test Item Value Reference Range Interpretation Comments POC-GLUCOSE METER 117 mg/dL 70-110 H TESTED AT [facility] 6720 (BEAKER) (test code = HIRAM Hoover [place] 1538) [address] CBC W/PLT COUNT & AUTO [id number] 05:18:00 Test Item Value Reference Range Interpretation Comments WHITE BLOOD CELL COUNT (BEAKER) 10.0 K/ L 3.5-10.5 (test code = 775) RED BLOOD CELL COUNT (BEAKER) 4.81 M/ L 3.93-5.22 (test code = 761) HEMOGLOBIN (BEAKER) (test code = 14.4 GM/DL 11.2-15.7 410) HEMATOCRIT (BEAKER) (test code = 44.6 % 34.1-44.9 411) MEAN CORPUSCULAR VOLUME (BEAKER) 92.7 fL 79.4-94.8 (test code = 753) MEAN CORPUSCULAR HEMOGLOBIN 29.9 pg 25.6-32.2 (BEAKER) (test code = 751) MEAN CORPUSCULAR HEMOGLOBIN CONC 32.3 GM/DL 32.2-35.5 (BEAKER) (test code = 752) RED CELL DISTRIBUTION WIDTH 13.9 % 11.7-14.4 (BEAKER) (test code = 412) PLATELET COUNT (BEAKER) (test 281 K/CU MM 150-450 code = 756) MEAN PLATELET VOLUME (BEAKER) 12.0 fL 9.4-12.3 (test code = 754) NUCLEATED RED BLOOD CELLS 0 /100 WBC 0-0 (BEAKER) (test code = 413) NEUTROPHILS RELATIVE PERCENT 62 % (BEAKER) (test code = 429) LYMPHOCYTES RELATIVE PERCENT 25 % (BEAKER) (test code = 430) MONOCYTES RELATIVE PERCENT 10 % (BEAKER) (test code = 431) EOSINOPHILS RELATIVE PERCENT 3 % (BEAKER) (test code = 432) BASOPHILS RELATIVE PERCENT 0 % (BEAKER) (test code = 437) NEUTROPHILS ABSOLUTE COUNT 6.12 K/ L 1.56-6.13 (BEAKER) (test code = 670) LYMPHOCYTES ABSOLUTE COUNT 2.45 K/ L 1.18-3.74 (BEAKER) (test code = 414) MONOCYTES ABSOLUTE COUNT (BEAKER) 1.03 K/ L 0.24-0.36 H (test code = 415) EOSINOPHILS ABSOLUTE COUNT 0.28 K/ L 0.04-0.36 (BEAKER) (test code = 416) BASOPHILS ABSOLUTE COUNT (BEAKER) 0.04 K/ L 0.01-0.08 (test code = 417) IMMATURE GRANULOCYTES-RELATIVE 0 % 0-1 PERCENT (BEAKER) (test code = 2801) [id number] 05:01:00 Test Item Value Reference Range Interpretation Comments MAGNESIUM (BEAKER) (test code = 1.6 mg/dL 1.6-2.6 627) BASIC METABOLIC [id number] 05:01:00 Test Item Value Reference Range Interpretation Comments SODIUM (BEAKER) 137 meq/L 136-145 (test code = 381) POTASSIUM (BEAKER) 4.1 meq/L 3.5-5.1 (test code = 379) CHLORIDE (BEAKER) 104 meq/L 98-107 (test code = 382) CO2 (BEAKER) (test 26 meq/L 22-29 code = 355) BLOOD UREA NITROGEN 6 mg/dL 7-21 L (BEAKER) (test code = 354) CREATININE (BEAKER) 0.72 mg/dL 0.57-1.25 (test code = 358) GLUCOSE RANDOM 134 mg/dL 70-105 H (BEAKER) (test code = 652) CALCIUM (BEAKER) 9.5 mg/dL 8.4-10.2 (test code = 697) EGFR (BEAKER) (test 82 mL/min/1.73 ESTIMA UZMA GFR IS code = 1092) sq m NOT ACCURATE CREATININE CLEARANCE IN PREDICTING GLOMERULAR FILTRATION RATE . ESTIMATED GFR I S NOT APPLICABLE FOR DIALYSIS PATIEN TS. MR, BRAIN, [id number] 22:59:00MRI UNDER ANESTHESIAFINAL REPORT MR, BRAIN, WITH \T\ WITHOUT CONTRAST, MR, MRA, BRAIN, WITH \T\ WITHOUT CONTRAST, MR, MRA, NECK, WITH \T\ WITHOUT IV CONTRAST INDICATION: Stroke workup TECHNIQUE: Multiplanar, multisequence MR images of the brain. 3-D time of flight MRA of the cranial and cervical circulation. 2-D time of flight MRA of the neck. 3D MIP angiographic post-processing was performed. Stenosis evaluation utilized NASCET criteria. COMPARISON: None FINDINGS: MRI BRAIN: Cerebral parenchyma: Trace nonspecific T2 FLAIR hyperintensities typical of chronic microangiopathy ischemic changes present. No evidence of acute infarction, acute hemorrhage or mass. Sulcal loss of the T2 FLAIR water signal suppression typical of supplemental oxygen therapy.Midline structures: Normally positioned.Cereb ellum and brainstem: Normal.Ventricles: Normal volume.Extra-axial spaces: Unremarkable. Calvarium and skull base: Normal signal.Paranasal sinuses and mastoid air cells: Trace left mastoid effusion.Orbital contents: No acute abnormality. Additional findings: No pathologic enhancement. Major dural venous sinuses opacify normally. MRA BRAIN:Internal carotid arteries: Patent. Middle cerebral arteries: Patent to distal branches.Anterior cerebral arteries: Intact.Basilar system: Patent vertebrobasilar system.Posterior cerebral arteries:Patent through the quadrigeminal segments with poor relation distally likely due to technique limitations. Hypoplastic right P1 segment with patent right posterior communicating artery supplying the right KAIAWHINA KOHANGA REO.Additional findings: None. MRA NECK:Common carotid arteries: Unremarkable. Bifurcations: Mild peripheral signal loss may represent low-grade stenosis without hemodynamic significance versus turbulent flow artifact. No significant stenosis by NASCET criteria. Cervical internal carotid arteries: No flow limiting stenosis.Vertebral arteries: Codominant. No extracranial stenosis. Right vertebral artery origin is not visualized. IMPRESSION: No acute intracranial abnormality. No acute infarct. Trace nonspecific white matter T2 FLAIR hyperintensities typical of chronic microvascular ischemic changes, not uncommon for age. No flow limiting stenosis in the major branch vessels of the cervical or cranial circulation. Signed: Surendra Asher MDReport Verified Date/Time: 05/17/2019 22:59:07 MR, MRA, BRAIN, [id number] 22:59:00UNDER ANESTHESIAFINAL REPORT MR, BRAIN, WITH \T\ WITHOUT CONTRAST, MR, MRA, BRAIN, WITH \T\ WITHOUT CONTRAST, MR, MRA, NECK, WITH \T\ WITHOUT IV CONTRAST INDICATION: Stroke workup TECHNIQUE: Multiplanar, multisequence MR images of the brain. 3-D time of flight MRA of the cranial and cervical circulation. 2-D time of flight MRA of the neck. 3D MIP angiographic post-processing was performed. Stenosis evaluation utilized NASCET criteria. COMPARISON: None FINDINGS: MRI BRAIN: Cerebral parenchyma: Trace nonspecific T2 FLAIR hyperintensities typical of chronic microangiopathy ischemic changes present. No evidence of acute infarction, acute hemorrhage or mass. Sulcal loss of the T2 FLAIR water signal suppression typical of supplemental oxygen therapy.Midline structures: Normally positioned.Cerebellum and brainstem: Normal.Ventricles: Normal volume.Extra- axial spaces: Unremarkable. Calvarium and skull base: Normal signal.Paranasal sinuses and mastoid air cells: Trace left mastoid effusion.Orbital contents: No acute abnormality. Additional findings: No pathologic enhancement. Major dural venous sinuses opacify normally. MRA BRAIN:Internal carotid arteries: Patent. Middle cerebral arteries: Patent to distal branches.Anterior cerebral arteries: Intact.Basilar system: Patent vertebrobasilar system.Posterior cerebral arteries:Patent through the quadrigeminal segments with poor relation distally likely due to technique limitations. Hypoplastic right P1 segment with patent right posterior communicating artery supplying the right KAIAWHINA KOHANGA REO.Additional findings: None. MRA NECK:Common carotid arteries: Unremarkable. Bifurcations: Mild peripheral signal loss may represent low-grade stenosis without hemodynamic significance versus turbulent flow artifact. No significant stenosis by NASCET criteria. Cervical internal carotid arteries: No flow limiting stenosis.Vertebral arteries: Codominant. No extracranial stenosis. Right vertebral artery origin is not visualized. IMPRESSION: No acute intracranial abnormality. No acute infarct. Trace nonspecific white matter T2 FLAIR hyperintensities typical of chronic microvascular ischemic changes, not uncommon for age. No flow limiting stenosis in the major branch vessels of the cervical or cranial circulation. Signed: Surendra Asher MDReport Verified Date/Time: 05/17/2019 22:59:07 MR, MRA, NECK, [id number] 22:59:00UNDER ANESTHESIAFINAL REPORT MR, BRAIN, WITH \T\ WITHOUT CONTRAST, MR, MRA, BRAIN, WITH \T\ WITHOUT CONTRAST, MR, MRA, NECK, WITH \T\ WITHOUT IV CONTRAST INDICATION: Stroke workup TECHNIQUE: Multiplanar, multisequence MR images of the brain. 3-D time of flight MRA of the cranial and cervical circulation. 2-D time of flight MRA of the neck. 3D MIP angiographic post-processing was performed. Stenosis evaluation utilized NASCET criteria. COMPARISON: None FINDINGS: MRI BRAIN: Cerebral parenchyma: Trace nonspecific T2 FLAIR hyperintensities typical of chronic microangiopathy ischemic changes present. No evidence of acute infarction, acute hemorrhage or mass. Sulcal loss of the T2 FLAIR water signal suppression typical of supplemental oxygen therapy.Midline structures: Normally positioned.Cerebellum and brainstem: Normal.Ventricles: Normal volume.Extra- axial spaces: Unremarkable. Calvarium and skull base: Normal signal.Paranasal sinuses and mastoid air cells: Trace left mastoid effusion.Orbital contents: No acute abnormality. Additional findings: No pathologic enhancement. Major dural venous sinuses opacify normally. MRA BRAIN:Internal carotid arteries: Patent. Middle cerebral arteries: Patent to distal branches.Anterior cerebral arteries: Intact.Basilar system: Patent vertebrobasilar system.Posterior cerebral arteries:Patent through the quadrigeminal segments with poor relation distally likely due to technique limitations. Hypoplastic right P1 segment with patent right posterior communicating artery supplying the right KAIAWHINA KOHANGA REO.Additional findings: None. MRA NECK:Common carotid arteries: Unremarkable. Bifurcations: Mild peripheral signal loss may represent low-grade stenosis without hemodynamic significance versus turbulent flow artifact. No significant stenosis by NASCET criteria. Cervical internal carotid arteries: No flow limiting stenosis.Vertebral arteries: Codominant. No extracranial stenosis. Right vertebral artery origin is not visualized. IMPRESSION: No acute intracranial abnormality. No acute infarct. Trace nonspecific white matter T2 FLAIR hyperintensities typical of chronic microvascular ischemic changes, not uncommon for age. No flow limiting stenosis in the major branch vessels of the cervical or cranial circulation. Signed: Surendra Ashereport Verified Date/Time: 05/17/2019 22:59:07 POCT-GLUCOSE [id number] 20:25:00 Test Item Value Reference Range Interpretation Comments POC-GLUCOSE METER 103 mg/dL 70-110 TESTED AT [facility] 67[address] (BEAKER) (test code = HIRAM [address] [place] 1538) [id number] POCT-GLUCOSE [id number] 16:49:00 Test Item Value Reference Range Interpretation Comments POC-GLUCOSE METER 120 mg/dL 70-110 H TESTED AT [facility] 67[address] (BEAKER) (test code = HIRAM FUNE[place] 1538) [address] [id number] 06:02:00 Test Item Value Reference Range Interpretation Comments MAGNESIUM (BEAKER) (test code = 1.8 mg/dL 1.6-2.6 627) BASIC METABOLIC [id number] 06:02:00 Test Item Value Reference Range Interpretation Comments SODIUM (BEAKER) 138 meq/L 136-145 (test code = 381) POTASSIUM (BEAKER) 3.8 meq/L 3.5-5.1 (test code = 379) CHLORIDE (BEAKER) 106 meq/L 98-107 (test code = 382) CO2 (BEAKER) (test 25 meq/L 22-29 code = 355) BLOOD UREA NITROGEN 6 mg/dL 7-21 L (BEAKER) (test code = 354) CREATININE (BEAKER) 0.72 mg/dL 0.57-1.25 (test code = 358) GLUCOSE RANDOM 125 mg/dL 70-105 H (BEAKER) (test code = 652) CALCIUM (BEAKER) 9.3 mg/dL 8.4-10.2 (test code = 697) EGFR (BEAKER) (test 82 mL/min/1.73 ESTIMA UZMA GFR IS code = 1092) sq m NOT ACCURATE CREATININE CLEARANCE IN PREDICTING GLOMERULAR FILTRATION RATE . ESTIMATED GFR I S NOT APPLICABLE FOR DIALYSIS PATIEN TS. CBC W/PLT COUNT & AUTO [id number] 05:08:00 Test Item Value Reference Range Interpretation Comments WHITE BLOOD CELL COUNT (BEAKER) 8.7 K/ L 3.5-10.5 (test code = 775) RED BLOOD CELL COUNT (BEAKER) 4.67 M/ L 3.93-5.22 (test code = 761) HEMOGLOBIN (BEAKER) (test code = 14.1 GM/DL 11.2-15.7 410) HEMATOCRIT (BEAKER) (test code = 42.8 % 34.1-44.9 411) MEAN CORPUSCULAR VOLUME (BEAKER) 91.6 fL 79.4-94.8 (test code = 753) MEAN CORPUSCULAR HEMOGLOBIN 30.2 pg 25.6-32.2 (BEAKER) (test code = 751) MEAN CORPUSCULAR HEMOGLOBIN CONC 32.9 GM/DL 32.2-35.5 (BEAKER) (test code = 752) RED CELL DISTRIBUTION WIDTH 13.5 % 11.7-14.4 (BEAKER) (test code = 412) PLATELET COUNT (BEAKER) (test 262 K/CU MM 150-450 code = 756) MEAN PLATELET VOLUME (BEAKER) 11.2 fL 9.4-12.3 (test code = 754) NUCLEATED RED BLOOD CELLS 0 /100 WBC 0-0 (BEAKER) (test code = 413) NEUTROPHILS RELATIVE PERCENT 56 % (BEAKER) (test code = 429) LYMPHOCYTES RELATIVE PERCENT 28 % (BEAKER) (test code = 430) MONOCYTES RELATIVE PERCENT 10 % (BEAKER) (test code = 431) EOSINOPHILS RELATIVE PERCENT 5 % (BEAKER) (test code = 432) BASOPHILS RELATIVE PERCENT 1 % (BEAKER) (test code = 437) NEUTROPHILS ABSOLUTE COUNT 4.87 K/ L 1.56-6.13 (BEAKER) (test code = 670) LYMPHOCYTES ABSOLUTE COUNT 2.41 K/ L 1.18-3.74 (BEAKER) (test code = 414) MONOCYTES ABSOLUTE COUNT (BEAKER) 0.87 K/ L 0.24-0.36 H (test code = 415) EOSINOPHILS ABSOLUTE COUNT 0.46 K/ L 0.04-0.36 H (BEAKER) (test code = 416) BASOPHILS ABSOLUTE COUNT (BEAKER) 0.04 K/ L 0.01-0.08 (test code = 417) IMMATURE GRANULOCYTES-RELATIVE 1 % 0-1 PERCENT (BEAKER) (test code = 2801) POCT-GLUCOSE [id number] 21:32:00 Test Item Value Reference Range Interpretation Comments POC-GLUCOSE METER 103 mg/dL 70-110 TESTED AT [facility] 67[address] (BEAKER) (test code = HIRAM [place] 1538) [id number] POCT-GLUCOSE [id number] 08:23:00 Test Item Value Reference Range Interpretation Comments POC-GLUCOSE METER 117 mg/dL 70-110 H TESTED AT [facility] 67[address] (BEAKER) (test code = HIRAM [place] 1538) [id number] TROPONIN [id number] 03:04:00 Test Item Value Reference Range Interpretation Comments TROPONIN I (BEAKER) (test code = 397) < ng/mL 0.00-0.03 Troponin I (TnI) levels must be interpreted in the context of the presenting symptoms and the clinical findings. Elevated TnI levels indicate myocardial damage, but are not specific for ischemic heart disease. Elevated TnI levels are seen in patients with other cardiac conditions (including myocarditis and congestive heart failure), and slight TnI elevations occur in patients with other conditions, including sepsis, renal failure, acidosis, acute neurological disease, and persistent tachyarrhythmia.[id number] 02:57:00 Test Item Value Reference Range Interpretation Comments MAGNESIUM (BEAKER) (test code = 1.8 mg/dL 1.6-2.6 627) BASIC METABOLIC [id number] 02:57:00 Test Item Value Reference Range Interpretation Comments SODIUM (BEAKER) 138 meq/L 136-145 (test code = 381) POTASSIUM (BEAKER) 3.8 meq/L 3.5-5.1 (test code = 379) CHLORIDE (BEAKER) 105 meq/L 98-107 (test code = 382) CO2 (BEAKER) (test 25 meq/L 22-29 code = 355) BLOOD UREA NITROGEN 9 mg/dL 7-21 (BEAKER) (test code = 354) CREATININE (BEAKER) 0.71 mg/dL 0.57-1.25 (test code = 358) GLUCOSE RANDOM 92 mg/dL 70-105 (BEAKER) (test code = 652) CALCIUM (BEAKER) 9.1 mg/dL 8.4-10.2 (test code = 697) EGFR (BEAKER) (test 83 mL/min/1.73 ESTIMA UZMA GFR IS code = 1092) sq m NOT ACCURATE CREATININE CLEARANCE IN PREDICTING GLOMERULAR FILTRATION RATE . ESTIMATED GFR I S NOT APPLICABLE FOR DIALYSIS PATIEN TS. CBC W/PLT COUNT & AUTO [id number] 02:36:00 Test Item Value Reference Range Interpretation Comments WHITE BLOOD CELL COUNT (BEAKER) 6.2 K/ L 3.5-10.5 (test code = 775) RED BLOOD CELL COUNT (BEAKER) 4.48 M/ L 3.93-5.22 (test code = 761) HEMOGLOBIN (BEAKER) (test code = 13.5 GM/DL 11.2-15.7 410) HEMATOCRIT (BEAKER) (test code = 41.2 % 34.1-44.9 411) MEAN CORPUSCULAR VOLUME (BEAKER) 92.0 fL 79.4-94.8 (test code = 753) MEAN CORPUSCULAR HEMOGLOBIN 30.1 pg 25.6-32.2 (BEAKER) (test code = 751) MEAN CORPUSCULAR HEMOGLOBIN CONC 32.8 GM/DL 32.2-35.5 (BEAKER) (test code = 752) RED CELL DISTRIBUTION WIDTH 13.5 % 11.7-14.4 (BEAKER) (test code = 412) PLATELET COUNT (BEAKER) (test 207 K/CU MM 150-450 code = 756) MEAN PLATELET VOLUME (BEAKER) 11.4 fL 9.4-12.3 (test code = 754) NUCLEATED RED BLOOD CELLS 0 /100 WBC 0-0 (BEAKER) (test code = 413) NEUTROPHILS RELATIVE PERCENT 41 % (BEAKER) (test code = 429) LYMPHOCYTES RELATIVE PERCENT 37 % (BEAKER) (test code = 430) MONOCYTES RELATIVE PERCENT 13 % (BEAKER) (test code = 431) EOSINOPHILS RELATIVE PERCENT 7 % (BEAKER) (test code = 432) BASOPHILS RELATIVE PERCENT 1 % (BEAKER) (test code = 437) NEUTROPHILS ABSOLUTE COUNT 2.56 K/ L 1.56-6.13 (BEAKER) (test code = 670) LYMPHOCYTES ABSOLUTE COUNT 2.29 K/ L 1.18-3.74 (BEAKER) (test code = 414) MONOCYTES ABSOLUTE COUNT (BEAKER) 0.83 K/ L 0.24-0.36 H (test code = 415) EOSINOPHILS ABSOLUTE COUNT 0.46 K/ L 0.04-0.36 H (BEAKER) (test code = 416) BASOPHILS ABSOLUTE COUNT (BEAKER) 0.03 K/ L 0.01-0.08 (test code = 417) IMMATURE GRANULOCYTES-RELATIVE 0 % 0-1 PERCENT (BEAKER) (test code = 2801) POCT-GLUCOSE [id number] 01:45:00 Test Item Value Reference Range Interpretation Comments POC-GLUCOSE METER 101 mg/dL 70-110 TESTED AT [place] [address] (BEAKER) (test code = HIRAM Hoover [facility] 1538) [id number] POCT-GLUCOSE [id number] 22:19:00 Test Item Value Reference Range Interpretation Comments POC-GLUCOSE METER 102 mg/dL 70-110 TESTED AT [place] [address] (BEAKER) (test code = [facility] Sneha [facility] 1538) [id number] VITAMIN B12 AND [id number] 19:04:00 Test Item Value Reference Range Interpretation Comments VITAMIN B12 (BEAKER) (test code = 844 pg/mL 213-816 H 774) FOLATE (BEAKER) (test code = 362) 34.6 ng/mL >=7.0 T4, [id number] 18:58:00 Test Item Value Reference Range Interpretation Comments FREE T4 (BEAKER) (test code = 655) 0.85 ng/dL 0.70-1.48 POCT-GLUCOSE [id number] 18:20:00 Test Item Value Reference Range Interpretation Comments POC-GLUCOSE METER 100 mg/dL 70-110 TESTED AT [place] [address] (BEAKER) (test code = [facility] Sneha [facility] 1538) [id number] POCT-GLUCOSE [id number] 12:58:00 Test Item Value Reference Range Interpretation Comments POC-GLUCOSE METER 129 mg/dL 70-110 H TESTED AT [place] [address] (BEAKER) (test code = [facility] Sneha [facility] 1538) [id number] URINALYSIS WITHOUT [id number] 09:10:00 Test Item Value Reference Range Interpretation Comments COLOR (BEAKER) (test code = 470) Yellow CLARITY (BEAKER) (test code = 469) Clear SPECIFIC GRAVITY UA (BEAKER) (test 1.024 1.001-1.035 code = 468) PH UA (BEAKER) (test code = 467) 6.0 5.0-8.0 PROTEIN UA (BEAKER) (test code = 20 mg/dL Negative A 464) GLUCOSE UA (BEAKER) (test code = Negative Negative 365) KETONES UA (BEAKER) (test code = Negative Negative 371) BILIRUBIN UA (BEAKER) (test code = Negative Negative 462) BLOOD UA (BEAKER) (test code = 461) Negative Negative NITRITE UA (BEAKER) (test code = Negative Negative 465) LEUKOCYTE ESTERASE UA (BEAKER) Moderate Negative A (test code = 466) UROBILINOGEN UA (BEAKER) (test code 2.0 mg/dL 0.2-1.0 H = 463) SOURCE(BEAKER) (test code = 2795) HEMOGLOBIN [id number] 03:12:00 Test Item Value Reference Range Interpretation Comments HEMOGLOBIN A1C (BEAKER) (test code = 6.3 % 4.3-6.1 H 368) TROPONIN [id number] 01:20:00 Test Item Value Reference Range Interpretation Comments TROPONIN I (BEAKER) (test code = 0.01 ng/mL 0.00-0.03 397) Troponin I (TnI) levels must be interpreted in the context of the presenting symptoms and the clinical findings. Elevated TnI levels indicate myocardial damage, but are not specific for ischemic heart disease. Elevated TnI levels are seen in patients with other cardiac conditions (including myocarditis and congestive heart failure), and slight TnI elevations occur in patients with other conditions, including sepsis, renal failure, acidosis, acute neurological disease, and persistent tachyarrhythmia.FastingLIPID [id number] 01:14:00 Test Item Value Reference Range Interpretation Comments TRIGLYCERIDES (BEAKER) (test code = 132 mg/dL 540) CHOLESTEROL (BEAKER) (test code = 125 mg/dL 631) HDL CHOLESTEROL (BEAKER) (test code 35 mg/dL = 976) LDL CHOLESTEROL CALCULATED ([facility]) 64 mg/dL (test code = 633) Triglyceride Reference Range: Low Risk <150 Borderline 150-199 High Risk 200-499 Very High Risk >=500Cholesterol Reference Range: Low Risk <200 Borderline 200-239 High Risk >240HDL Cholesterol Reference Range: Low Risk >=60 High Risk <40LDL Cholesterol Reference Range: Optimal <100 Near Optimal 100-129 Borderline 130-159 High 160-189 Very High >=190 FastingPOCT-GLUCOSE [id number] 21:37:00 Test Item Value Reference Range Interpretation Comments POC-GLUCOSE METER 104 mg/dL 70-110 TESTED AT [facility] 67[address] ([facility]) (test code = HIRAM FOSTER 4272) [address] TROPONIN [id number] 19:14:00 Test Item Value Reference Range Interpretation Comments TROPONIN I (BEAKER) (test code = 397) < ng/mL 0.00-0.03 Troponin I (TnI) levels must be interpreted in the context of the presenting symptoms and the clinical findings. Elevated TnI levels indicate myocardial damage, but are not specific for ischemic heart disease. Elevated TnI levels are seen in patients with other cardiac conditions (including myocarditis and congestive heart failure), and slight TnI elevations occur in patients with other conditions, including sepsis, renal failure, acidosis, acute neurological disease, and persistent tachyarrhythmia.C-REACTIVE [id number] 15:51:00 Test Item Value Reference Range Interpretation Comments C-REACTIVE PROTEIN (BEAKER) (test 0.17 mg/dL 0.00-0.50 code = 676) RAD, CHEST, 1 VIEW, NON [id number] 15:51:00Reason for exam:->Chest painShould this be performed at the bedside?->YesFINAL REPORT History: Chest pain Comparison: No comparison chest imaging Findings: Lung volumes are low. There is mild patchy airspace consolidation at the left lung base suggestive of atelectasis or pneumonia. Lungs otherwise clear. No pleural effusions or pneumothorax. The heart shadow is normal in size. The thoracic aorta is mildly tortuous. No skeletal abnormalities are visualized. Impression: Mild subsegmental atelectasis versus pneumonitis at the left lung base. Signed:Jacqui Roberson MDReport Verified Date/Time: 05/14/2019 15:51:28 Reading Location: [address] Reading Room [id number] 15:16:00 Test Item Value Reference Range Interpretation Comments PHOSPHORUS (BEAKER) (test code = 3.2 mg/dL 2.3-4.7 604) [id number] 15:16:00 Test Item Value Reference Range Interpretation Comments MAGNESIUM (BEAKER) (test code = 1.5 mg/dL 1.6-2.6 L 627) BASIC METABOLIC [id number] 15:16:00 Test Item Value Reference Range Interpretation Comments SODIUM (BEAKER) 137 meq/L 136-145 (test code = 381) POTASSIUM (BEAKER) 3.6 meq/L 3.5-5.1 (test code = 379) CHLORIDE (BEAKER) 100 meq/L 98-107 (test code = 382) CO2 (BEAKER) (test 24 meq/L 22-29 code = 355) BLOOD UREA NITROGEN 9 mg/dL 7-21 (BEAKER) (test code = 354) CREATININE (BEAKER) 0.74 mg/dL 0.57-1.25 (test code = 358) GLUCOSE RANDOM 172 mg/dL 70-105 H (BEAKER) (test code = 652) CALCIUM (BEAKER) 10.0 mg/dL 8.4-10.2 (test code = 697) EGFR (BEAKER) (test 79 mL/min/1.73 ESTIMA UZMA GFR IS code = 1092) sq m NOT ACCURATE CREATININE CLEARANCE IN PREDICTING GLOMERULAR FILTRATION RATE . ESTIMATED GFR I S NOT APPLICABLE FOR DIALYSIS PATIEN TS. LIPID [id number] 15:16:00 Test Item Value Reference Range Interpretation Comments TRIGLYCERIDES (BEAKER) (test code = 128 mg/dL 540) CHOLESTEROL (BEAKER) (test code = 152 mg/dL 631) HDL CHOLESTEROL (BEAKER) (test code 43 mg/dL = 976) LDL CHOLESTEROL CALCULATED (BEAKER) 83 mg/dL (test code = 633) Triglyceride Reference Range: Low Risk <150 Borderline 150-199 High Risk 200-499 Very High Risk >=500Cholesterol Reference Range: Low Risk <200 Borderline 200-239 High Risk >240HDL Cholesterol Reference Range: Low Risk >=60 High Risk <40LDL Cholesterol Reference Range: Optimal <100 Near Optimal 100-129 Borderline 130-159 High 160-189 Very High >=190HEPATIC FUNCTION [id number] 15:16:00 Test Item Value Reference Range Interpretation Comments TOTAL PROTEIN (BEAKER) (test code = 8.5 gm/dL 6.0-8.3 H 770) ALBUMIN (BEAKER) (test code = 1145) 4.5 g/dL 3.5-5.0 BILIRUBIN TOTAL (BEAKER) (test code 0.7 mg/dL 0.2-1.2 = 377) BILIRUBIN DIRECT (BEAKER) (test 0.3 mg/dL 0.1-0.5 code = 706) ALKALINE PHOSPHATASE (BEAKER) (test 45 U/L 40-150 code = 346) AST (SGOT) (BEAKER) (test code = 28 U/L 5-34 353) ALT (SGPT) (BEAKER) (test code = 33 U/L 6-55 347) [id number] 15:04:00 Test Item Value Reference Range Interpretation Comments PROTIME (BEAKER) (test code = 14.3 seconds 11.9-14.2 H 759) INR (BEAKER) (test code = 370) 1.2 <=5.9 PARTIAL THROMBOPLASTIN TIME 24.1 seconds 22.5-36.0 (BEAKER) (test code = 760) Effective 03/29/2019: PT Reference Range ChangeNew: 11.9-14.2 Previous: 11.7- 14.7RECOMMENDED COUMADIN/WARFARIN INR THERAPY RANGESSTANDARD DOSE: 2.0-3.0 Includes: PROPHYLAXIS for venous thrombosis, systemic embolization; TREATMENT for venous thrombosis and/or pulmonary embolus.HIGH RISK: Target INR is2.5-3.5 for patients wiht mechanical heart valves.CBC W/PLT COUNT & AUTO [id number] 15:03:00 Test Item Value Reference Range Interpretation Comments WHITE BLOOD CELL COUNT (BEAKER) 9.0 K/ L 3.5-10.5 (test code = 775) RED BLOOD CELL COUNT (BEAKER) 5.21 M/ L 3.93-5.22 (test code = 761) HEMOGLOBIN (BEAKER) (test code = 15.7 GM/DL 11.2-15.7 410) HEMATOCRIT (BEAKER) (test code = 47.4 % 34.1-44.9 H 411) MEAN CORPUSCULAR VOLUME (BEAKER) 91.0 fL 79.4-94.8 (test code = 753) MEAN CORPUSCULAR HEMOGLOBIN 30.1 pg 25.6-32.2 (BEAKER) (test code = 751) MEAN CORPUSCULAR HEMOGLOBIN CONC 33.1 GM/DL 32.2-35.5 (BEAKER) (test code = 752) RED CELL DISTRIBUTION WIDTH 13.5 % 11.7-14.4 (BEAKER) (test code = 412) PLATELET COUNT (BEAKER) (test 260 K/CU MM 150-450 code = 756) MEAN PLATELET VOLUME (BEAKER) 10.8 fL 9.4-12.3 (test code = 754) NUCLEATED RED BLOOD CELLS 0 /100 WBC 0-0 (BEAKER) (test code = 413) NEUTROPHILS RELATIVE PERCENT 82 % (BEAKER) (test code = 429) LYMPHOCYTES RELATIVE PERCENT 13 % (BEAKER) (test code = 430) MONOCYTES RELATIVE PERCENT 5 % (BEAKER) (test code = 431) EOSINOPHILS RELATIVE PERCENT 0 % (BEAKER) (test code = 432) BASOPHILS RELATIVE PERCENT 0 % (BEAKER) (test code = 437) NEUTROPHILS ABSOLUTE COUNT 7.38 K/ L 1.56-6.13 H (BEAKER) (test code = 670) LYMPHOCYTES ABSOLUTE COUNT 1.16 K/ L 1.18-3.74 L (BEAKER) (test code = 414) MONOCYTES ABSOLUTE COUNT (BEAKER) 0.42 K/ L 0.24-0.36 H (test code = 415) EOSINOPHILS ABSOLUTE COUNT 0.01 K/ L 0.04-0.36 L (BEAKER) (test code = 416) BASOPHILS ABSOLUTE COUNT (BEAKER) 0.02 K/ L 0.01-0.08 (test code = 417) IMMATURE GRANULOCYTES-RELATIVE 1 % 0-1 PERCENT (BEAKER) (test code = 2801) CALCIUM, [id number] 15:01:00 Test Item Value Reference Range Interpretation Comments CALCIUM IONIZED (BEAKER) (test 1.05 mmol/L 1.12-1.27 L code = 698) PH, BLOOD (BEAKER) (test code = 7.36 2320)
[2020-11-08] MEDS ORDERED: TETANUS & DIPHTHERIA TOX,ADULT 0.5 ML VIAL ONE (20:18)
[2020-11-08] MEDS ORDERED: LIDOCAINE 1% MPF 5 ML VIAL ONE (20:18)
--- NOTE | 2020-11-08 20:35 | ER ---
Nurse's Notes [facility] Name: Ryann Spence Age: 65 yrs Sex: Female : 1955 Arrival Date: 11/08/2020 Time: 18:23 Bed 25 Private MD: Diagnosis: Laceration without foreign body of scalp Presentation: 11/08 18:41 Chief complaint: Patient states: Tripped on porch just prior to arrival hitting head on ss a wooden pot. Approximately 1 inch laceration sustained to forehead. Denies LOC. No active bleeding noted at this time. Coronavirus screen: Client denies travel out of the [place] in the last 14 days. Ebola Screen: Patient denies exposure to infectious person. Patient denies travel to an Ebola-affected area in the 21 days before illness onset. Initial Sepsis Screen: Does the patient meet any 2 criteria? No. Patient's initial sepsis screen is negative. Does the patient have a suspected source of infection? No. Patient's initial sepsis screen is negative. Risk Assessment: Do you want to hurt yourself or someone else? Patient reports no desire to harm self or others. Onset of symptoms was November 08, 2020. 18:41 Method Of Arrival: Ambulatory 18:41 Acuity: WILLIAM 4 Historical: - Allergies: 18:49 Sulfa (Sulfonamide Antibiotics); ss - PMHx: 18:49 Diabetes - NIDDM; Hypertension; Hypothyroidism; Headaches; ss - PSHx: 18:49 Cholecystectomy; Partial Hysterectomy; Tonsillectomy; ss - Immunization history:: Adult Immunizations up to date, Last tetanus immunization: unknown. - Social history:: Smoking status: Patient denies any tobacco usage or history of. Vital Signs: 18:45 BP 143 / 99; Pulse 96; Resp 18; Temp 98.3(TE); Pulse Ox 100% on R/A; Weight 77.11 kg; ss Height 5 ft. 5 in. (165.10 cm); Pain 6/10; 18:45 Body Mass Index 28.29 (77.11 kg, 165.10 cm) ED Course: 18:23 Patient arrived in ED. ag5 18:43 Triage completed. ss 18:49 Arm band placed on right wrist. ss 20:03 Re Lunsford FNP-C is PHCP. kb 20:03 David Rosa MD is Attending Physician. kb Administered Medications: 20:04 Drug: Tetanus-Diphtheria Toxoid Adult 0.5 ml {Email Production Specialist: [employer]. Exp: kb 02/15/2022. Lot #: [id number]. } Route: IM; Site: left deltoid; Outcome: 20:35 Discharge ordered by . kb 20:37 Patient left the ED. kb Signatures: Re Lunsford, CLINT-C PIG IRON LOADER-Erin Gottlieb, ODETTE RN Alvarez Suresh ag5
--- NOTE | 2020-11-08 20:36 | EDPHYS ---
Physician Documentation [facility] Name: Ryann Spence Age: 65 yrs Sex: Female : 1955 Arrival Date: 11/08/2020 Time: 18:23 Bed 25 Private MD: ED Physician David Rosa HPI: 11/08 20:33 This 65 yrs old Female presents to ER via Ambulatory with complaints of Fall kb Injury, Laceration To Forehead. 20:33 The patient has a laceration related to: falling from a standing position, occurred at home, outdoors, and there are no complicating factors. The injury was accidental. The laceration(s) is(are) located on the forehead. Onset: The symptoms/episode began/occurred just prior to arrival. Associated signs and symptoms: The patient has no apparent associated signs or symptoms. The patient has not experienced similar symptoms in the past. The patient has not recently seen a physician. Pt reports she tripped on porch, fell and hit head on a pot causing laceration. Denies LOC, headache, dizziness or any other neuro symptoms. . Historical: - Allergies: 18:49 Sulfa (Sulfonamide Antibiotics); ss - PMHx: 18:49 Diabetes - NIDDM; Hypertension; Hypothyroidism; Headaches; ss - PSHx: 18:49 Cholecystectomy; Partial Hysterectomy; Tonsillectomy; ss - Immunization history:: Adult Immunizations up to date, Last tetanus immunization: unknown. - Social history:: Smoking status: Patient denies any tobacco usage or history of. ROS: 20:33 Constitutional: Negative for fever, chills, and weight loss, Cardiovascular: Negative kb for chest pain, palpitations, and edema, Respiratory: Negative for shortness of breath, cough, wheezing, and pleuritic chest pain, Abdomen/GI: Negative for abdominal pain, nausea, vomiting, diarrhea, and constipation, MS/Extremity: Negative for injury and deformity, Neuro: Negative for headache, weakness, numbness, tingling, and seizure. 20:33 Skin: Positive for laceration(s), of the forehead. Exam: 20:31 Constitutional: This is a well developed, well nourished patient who is awake, alert, kb and in no acute distress. Head/Face: Normocephalic, atraumatic. Chest/axilla: Normal chest wall appearance and motion. Nontender with no deformity. No lesions are appreciated. Cardiovascular: Regular rate and rhythm with a normal S1 and S2. No gallops, murmurs, or rubs. Normal PMI, no JVD. No pulse deficits. Respiratory: Lungs have equal breath sounds bilaterally, clear to auscultation and percussion. No rales, rhonchi or wheezes noted. No increased work of breathing, no retractions or nasal flaring. Abdomen/GI: Soft, non-tender, with normal bowel sounds. No distension or tympany. No guarding or rebound. No evidence of tenderness throughout. MS/ Extremity: Pulses equal, no cyanosis. Neurovascular intact. Full, normal range of motion. Neuro: Awake and alert, GCS 15, oriented to person, place, time, and situation. Cranial nerves II-XII grossly intact. Motor strength 5/5 in all extremities. Sensory grossly intact. Cerebellar exam normal. Normal gait. 20:31 Skin: injury, laceration(s), the wound is approximately 3 cm(s), of the forehead, that can be described as clean, no foreign body, irregular, without bleeding. Vital Signs: 18:45 BP 143 / 99; Pulse 96; Resp 18; Temp 98.3(TE); Pulse Ox 100% on R/A; Weight 77.11 kg; ss Height 5 ft. 5 in. (165.10 cm); Pain 6/10; 18:45 Body Mass Index 28.29 (77.11 kg, 165.10 cm) ss Laceration: 20:32 Wound Repair of 3cm ( 1.2in ) subcutaneous laceration to forehead. Irregularly shaped.. kb Distal neuro/vascular/tendon intact. Anesthesia: Wound infiltrated with 2.5 mls of 1% lidocaine. Wound prep: Extensive cleansing with hibiclenz by me, Wound irrigation with saline by wa. Skin closed with 5 5-0 fast absorbing gut using simple sutures and sterile technique. Patient tolerated well. MDM: 20:04 Patient medically screened. kb 20:31 Data reviewed: vital signs, nurses notes. Data interpreted: Pulse oximetry: on room air kb is 100 %. Interpretation: normal. Counseling: I had a detailed discussion with the patient and/or guardian regarding: the historical points, exam findings, and any diagnostic results supporting the discharge/admit diagnosis, the need for outpatient follow up, a family practitioner, to return to the emergency department if symptoms worsen or persist or if there are any questions or concerns that arise at home. 11/08 20:04 Order name: Prolene, Sutures; Complete Time: 20:05 kb 11/08 20:04 Order name: Dressing - Wound; Complete Time: 20:05 kb 11/08 20:04 Order name: Gloves, Sterile; Complete Time: 20:05 kb 11/08 20:04 Order name: Setup Suture Tray; Complete Time: 20:05 kb Administered Medications: 20:04 Drug: Tetanus-Diphtheria Toxoid Adult 0.5 ml {Spot Man: [employer]. Exp: kb 02/15/2022. Lot #: [id number]. } Route: IM; Site: left deltoid; Disposition: 11/09 07:05 Co-signature as Attending Physician, David Rosa MD. [email or web address] Disposition: 11/08/20 20:35 Discharged to Home. Impression: Laceration without foreign body of scalp. - Condition is Stable. - Discharge Instructions: Laceration Care, Adult, [id number], Head Injury, Adult, [id number]. - Medication Reconciliation Form, Thank You Letter, Antibiotic Education, Prescription Opioid Use form. - Follow up: Emergency Department; When: As needed; Reason: Worsening of condition. Follow up: Private Physician; When: 2 - 3 days; Reason: Recheck today's complaints, Continuance of care, Re-evaluation by your physician. Signatures: Re Lunsford, DUSTINC INTERMODAL DISPATCHER-Erin Gottlieb RN RN David Rosa MD MD 7 Corrections: (The following items were deleted from the chart) 11/08 20:37 20:35 11/08/2020 20:35 Discharged to Home. Impression: Laceration without foreign body kb of scalp. Condition is Stable. Forms are Medication Reconciliation Form, Thank You Letter, Antibiotic Education, Prescription Opioid Use. Follow up: Emergency Department; When: As needed; Reason: Worsening of condition. Follow up: Private Physician; When: 2 - 3 days; Reason: Recheck today's complaints, Continuance of care, Re-evaluation by your physician. kb
== END 2020-11-08 20:37 | disposition home or self-care (01) ==
LOC: ER 18:22
PROC: 0JQ00ZZ Repair Scalp Subcutaneous Tissue and Fascia, Open Approach (ICD-10-PCS; principal; 2020-11-08)
DX: S01.01XA Laceration without foreign body of scalp, initial encounter (principal); W01.198A Fall on same level from slipping, tripping and stumbling with subsequent striking against other object, initial encounter; Y93.9 Activity, unspecified; Y92.008 Other place in unspecified non-institutional (private) residence as the place of occurrence of the external cause; Z23 Encounter for immunization
CPT/HCPCS: 90471; 90714; 99282

== ENCOUNTER 2021-08-05 15:11 | Emergency (ER) | payer OTHER ==
--- NOTE | 2021-08-05 15:47 | ER ---
Nurse's Notes [facility] Name: Ryann Spence Age: 66 yrs Sex: Female : 1955 Arrival Date: 08/05/2021 Time: 15:14 Bed DX3 Private MD: Diagnosis: Insect bite (nonvenomous) of right forearm Presentation: 08/05 15:20 Chief complaint: Patient states: was stung by a wasp today about 30 minutes "on my vein sv right here in the middle of my right elbow bend. She mixed baking soda and water together and placed it on the area. Risk Assessment: Do you want to hurt yourself or someone else? Patient reports no desire to harm self or others. Onset of symptoms was August 05, 2021. 15:20 Method Of Arrival: Ambulatory sv 15:20 Acuity: WILLIAM 5 sv 15:22 Coronavirus screen: Vaccine status: Patient reports being unvaccinated. Ebola Screen: sv No symptoms or risks identified at this time. Initial Sepsis Screen: Does the patient meet any 2 criteria? No. Patient's initial sepsis screen is negative. Does the patient have a suspected source of infection? No. Patient's initial sepsis screen is negative. Triage Assessment: 15:23 General: Appears in no apparent distress. comfortable, Behavior is calm, cooperative, sv appropriate for age. Neuro: Level of Consciousness is awake, alert, obeys commands, Gait is steady. Respiratory: Airway is patent Respiratory effort is even, unlabored. Historical: - Allergies: 15:22 Sulfa (Sulfonamide Antibiotics); sv - PMHx: 15:22 Hypertension; Hypothyroidism; Headaches; Diabetes - NIDDM; sv - Immunization history:: Adult Immunizations up to date. - Social history:: Smoking status: Patient denies any tobacco usage or history of. Screenin:39 Abuse screen: Denies threats or abuse. Denies injuries from another. Nutritional aj2 screening: No deficits noted. Tuberculosis screening: No symptoms or risk factors identified. Fall Risk None identified. Assessment: 15:39 Reassessment: Patient appears in no apparent distress at this time. Patient and/or aj2 family updated on plan of care and expected duration. Pain level reassessed. Patient is alert/active/playful, equal unlabored respirations, skin warm/dry/pink. Vital Signs: 15:22 BP 126 / 92; Pulse 79; Resp 20; Temp 97.3; Pulse Ox 97% ; Weight 81.65 kg; Height 5 ft. sv 5 in. (165.10 cm); 15:22 Body Mass Index 29.95 (81.65 kg, 165.10 cm) sv ED Course: 15:14 Patient arrived in ED. as 15:20 Arm band placed on. sv 15:22 Triage completed. sv 15:28 Frantz Tavares NP is PHCP. pm1 15:28 Salomón Bhatia MD is Attending Physician. pm1 15:33 Keven Pierce is Primary Nurse. aj2 15:39 No apparent distress. Resting quietly. aj2 15:39 Patient has correct armband on for positive identification. aj2 15:39 No provider procedures requiring assistance completed. aj2 Administered Medications: 15:47 Drug: Tetanus-Diphtheria Toxoid Adult 0.5 ml {Board Certified Arts Therapist: [employer] Exp: aj2 01/30/2023. Lot #: [id number]. } Route: IM; Site: left deltoid; Outcome: 15:46 Discharge ordered by . pm1 15:51 Discharged to home ambulatory. aj2 15:51 Condition: stable 15:51 Discharge instructions given to patient, Instructed on discharge instructions, follow up and referral plans. Demonstrated understanding of instructions, follow-up care. 15:51 Patient left the ED. aj2 Signatures: Arely Travis RN RN Rain Weinstein as Frantz Tavares NP QUILL COLLECTOR pm1 Keven Pierce aj2 Corrections: (The following items were deleted from the chart) 15:24 15:22 Pulse 79bpm; Resp 20bpm; Pulse Ox 97%; Temp 97.3F; 81.65 kg; Height 5 ft. 5 in.; sv BMI: 29.9; sv
--- NOTE | 2021-08-05 15:47 | EDPHYS ---
Physician Documentation [facility] Name: Ryann Spence Age: 66 yrs Sex: Female : 1955 Arrival Date: 08/05/2021 Time: 15:14 Bed DX3 Private MD: ED Physician Salomón Bhatia HPI: 08/05 15:43 This 66 yrs old Female presents to ER via Ambulatory with complaints of pm1 Insect Bite. 15:43 The patient or guardian complains of a bite, Wasp. The complaints affect the right pm1 antecubital area. Context: The problem was sustained at home, resulted from Moving a plant that had wasp hiding on it. Onset: The symptoms/episode began/occurred today. Treatment prior to arrival includes: Baking soda paste topically. Modifying factors: The symptoms are alleviated by nothing. the symptoms are aggravated by nothing. Associated signs and symptoms: Pertinent positives: pain, swelling. Severity of symptoms: in the emergency department the symptoms have improved. The patient has experienced a previous episode, many years ago. The patient has not recently seen a physician. Patient was moving a plant in her house but apparently had a wasp hiding in it. Patient bitten multiple times by the same wasp multiple times to the right AC. Patient applied baking soda paste to the bites. Historical: - Allergies: 15:22 Sulfa (Sulfonamide Antibiotics); sv - PMHx: 15:22 Hypertension; Hypothyroidism; Headaches; Diabetes - NIDDM; sv - Immunization history:: Adult Immunizations up to date. - Social history:: Smoking status: Patient denies any tobacco usage or history of. ROS: 15:43 Constitutional: Negative for fever, chills, and weight loss, Cardiovascular: Negative pm1 for chest pain, palpitations, and edema, Respiratory: Negative for shortness of breath, cough, wheezing, and pleuritic chest pain, Abdomen/GI: Negative for abdominal pain, nausea, vomiting, diarrhea, and constipation, MS/Extremity: Negative for injury and deformity. 15:43 Neuro: Negative for headache, weakness, numbness, tingling, and seizure. 15:43 Skin: Positive for swelling, of the right antecubital area. 15:43 All other systems are negative. Exam: 15:43 Constitutional: This is a well developed, well nourished patient who is awake, alert, pm1 and in no acute distress. Head/Face: Normocephalic, atraumatic. 15:43 Cardiovascular: Exam negative for acute changes, Rate: normal, Rhythm: regular, Pulses: no pulse deficits are appreciated. 15:43 Respiratory: Exam negative for acute changes, respiratory distress, shortness of breath. 15:43 Skin: Appearance: normal except for affected area, abscess, not appreciated, cellulitis, is not appreciated, Mild redness and swelling to right AC with 2 apparent areas of insect bite sigala. 15:43 Neuro: Exam negative for acute changes, Orientation: is normal, Mentation: is normal, Motor: is normal, moves all fours, Gait: is steady, at a normal pace, without difficulty. Vital Signs: 15:22 BP 126 / 92; Pulse 79; Resp 20; Temp 97.3; Pulse Ox 97% ; Weight 81.65 kg; Height 5 ft. sv 5 in. (165.10 cm); 15:22 Body Mass Index 29.95 (81.65 kg, 165.10 cm) sv MDM: 15:31 Patient medically screened. pm1 15:43 ED course: Offered Benadryl, steroids, and antibiotics. Patient refused all 3. Patient pm1 reports Benadryl makes her skin crawl, would not like steroids due to history of diabetes, and will watch the condition of her skin and follow-up with her PCP if antibiotics are required. Patient came to the ER due to the location of the wasp bites, they were close to a superficial vein in her right AC. 15:43 Data reviewed: vital signs. Data interpreted: Pulse oximetry: on room air is 100 %. pm1 Interpretation: normal. Administered Medications: 15:47 Drug: Tetanus-Diphtheria Toxoid Adult 0.5 ml {[employer]: [employer] Exp: aj2 01/30/2023. Lot #: [id number]. } Route: IM; Site: left deltoid; Disposition Summary: 08/05/21 15:46 Discharge Ordered Location: Home pm1 Problem: new pm1 Symptoms: have improved pm1 Condition: Stable pm1 Diagnosis - Insect bite (nonvenomous) of right forearm pm1 Followup: pm1 - With: Emergency Department - When: As needed - Reason: Worsening of condition Followup: pm1 - With: Private Physician - When: 2 - 3 days - Reason: Recheck today's complaints, Continuance of care, Re-evaluation by your physician Discharge Instructions: - Discharge Summary Sheet pm1 - Insect Bite, Adult pm1 Forms: - Medication Reconciliation Form pm1 - Thank You Letter pm1 - Antibiotic Education pm1 - Prescription Opioid Use pm1 Addendum: 08/08/2021 08:34 Co-signature as Attending Physician, Salomón Bhatia MD I agree with the assessment and r n plan of care. Attestation: The patient's history, exam findings, diagnostics, and a summary of any interventions or procedures was reviewed in detail with Frantz Tavares NP. Signatures: Arely Travis RN RN sv Nieto, Roman, MD MD rn Marinas, Patrick, NP CREMATOR pm1 PierceKeven aj2
[2021-08-05 15:56] VITALS: BP 126/92; TEMP 97.3; O2SAT 97
[2021-08-05] MEDS ORDERED: TETANUS & DIPHTHERIA TOX,ADULT 0.5 ML VIAL ONE (16:09)
== END 2021-08-05 15:51 | disposition home or self-care (01) ==
LOC: ER 15:11
DX: S50.861A Insect bite (nonvenomous) of right forearm, initial encounter (principal); I10 Essential (primary) hypertension; E11.9 Type 2 diabetes mellitus without complications; Z23 Encounter for immunization; Z88.2 Allergy status to sulfonamides
CPT/HCPCS: 90471; 90714; 99283

== ENCOUNTER 2024-03-28 05:17 | Emergency (ER) | payer OTHER ==
[2024-03-28] MEDS ORDERED: LIDOCAINE 4% PATCH ONE (05:36)
[2024-03-28] MEDS ORDERED: KETOROLAC 30 MG/ML INJ ONE (05:36)
[2024-03-28] MEDS ORDERED: DIAZEPAM 5 MG TABLET ONE ×2 (05:36→05:58)
[2024-03-28] MEDS ORDERED: MORPHINE 4 MG/ML SYR ONE (07:25)
--- NOTE | 2024-03-28 08:33 | RAD REPORT ---
EXAM DESCRIPTION: CT - Spine Lumbar Wo Con - 03/28/2024 7:19 am CLINICAL HISTORY: low back pain COMPARISON: No comparisons TECHNIQUE: Axial noncontrast CT imaging of the lumbar spine was performed with coronal and sagittal re-formatted images. All CT scans are performed using dose optimization technique as appropriate and may include automated exposure control or mA/KV adjustment according to patient size. FINDINGS: No acute lumbar spine fracture seen. No aggressive marrow pattern or malalignment. Paraspinal tissues are normal in thickness. No paraspinal abscess or hematoma seen. Intervertebral disc disease assessment is inherently limited by CT. Within these limitations, no high -grade canal stenosis suspected. Multilevel disc bulges, with probably mild degree of effacement of t he central canal at L4-5. No significant foraminal stenosis suspected. Mild colonic diverticulosis. IMPRESSION: No acute abnormalities. Mild degenerative changes most pronounced at L4-5. Please consider MRI follow-up for assessment of neural structures disc disease if clinically desired.
--- NOTE | 2024-03-28 08:35 | RAD REPORT ---
EXAM DESCRIPTION: CT - Pelvis Wo Cont - 03/28/2024 7:19 am CLINICAL HISTORY: R hip pain COMPARISON: Chest Angio dated 02/17/2023 TECHNIQUE: Thin cut axial CT imaging of the abdomen and pelvis was performed without IV contrast. Mu ltiplanar reformats were generated and reviewed. All CT scans are performed using dose optimization technique as appropriate and may include automated exposure control or mA/KV adjustment according to patient size. FINDINGS: No acute osseous abnormality. No focal suspicious osseous lesions. Degenerative changes of the lower lumbar spine most pronounced at L4-5. Mild diastasis recti. No dilated bowel loops or bowel wall thickening. Mild distal colonic diverticulosis. Appendix is unre markable. No free air, free fluid or inflammatory stranding. No hernia, mass or bulky lymphadenopathy . The urinary bladder is without significant finding. No suspicious bony findings. IMPRESSION: No acute osseous abnormality or suspicious osseous lesions. Degenerative changes of the lower lumbar spine as above.
--- NOTE | 2024-03-28 08:49 | ER ---
Nurse's Notes [facility] Name: Ryann Spence Age: 68 yrs Sex: Female : 1955 Arrival Date: 03/28/2024 Time: 05:17 Bed 13 Private MD: Diagnosis: Sciatica, right side;Buttock Pain Presentation: 03/28 05:25 Chief complaint: Patient states: I started having right sided hip pain yesterday jw7 morning that got progressively worse throughout the day and then woke me up this morning with severe pain. Coronavirus screen: At this time, the client does not indicate any symptoms associated with coronavirus-19. Ebola Screen: No symptoms or risks identified at this time. Initial Sepsis Screen: Does the patient meet any 2 criteria? No. Patient's initial sepsis screen is negative. Does the patient have a suspected source of infection? No. Patient's initial sepsis screen is negative. Risk Assessment: Do you want to hurt yourself or someone else? Patient reports no desire to harm self or others. Onset of symptoms was March 27, 2024. Care prior to arrival: Medication(s) given: Tylenol-Arthritis. 05:25 Method Of Arrival: EMS: [facility] jw7 05:25 Acuity: WILLIAM 3 jw7 Triage Assessment: 05:25 General: Appears in no apparent distress. uncomfortable, Behavior is calm, cooperative, jw7 appropriate for age, anxious. Pain: Complains of pain in right gluteus malcom Pain does not radiate. Pain currently is 8 out of 10 on a pain scale. Quality of pain is described as pulling Pain began 1 day ago. Is intermittent. 05:25 EENT: No deficits noted. No signs and/or symptoms were reported regarding the EENT jw7 system. Neuro: Level of Consciousness is awake, alert, obeys commands, Oriented to person, place, time, situation, Appropriate for age. Cardiovascular: Heart tones S1 S2 present Capillary refill < 3 seconds Clubbing of nail beds is absent JVD is absent Patient's skin is warm and dry. Respiratory: Airway is patent Trachea midline Respiratory effort is even, unlabored, Respiratory pattern is regular, symmetrical. GI: Abdomen is round non-distended, Bowel sounds present X 4 quads. Abd is soft and non tender X 4 quads. : No deficits noted. No signs and/or symptoms were reported regarding the genitourinary system. Derm: Skin is intact, is healthy with good turgor, Skin is dry, Skin is normal, Skin temperature is warm. Musculoskeletal: Circulation, motion, and sensation intact. Range of motion: limited in right hip. Historical: - Allergies: 06:18 Sulfa (Sulfonamide Antibiotics); jw7 - Home Meds: 06:18 atorvastatin Oral [Active]; Metoprolol Tartrate Oral [Active]; Metformin Oral [Active]; jw7 Glimepiride Oral [Active]; losartan oral [Active]; venlafaxine oral [Active]; Omeprazole Oral [Active]; levothyroxine oral [Active]; montelukast oral [Active]; Cyclobenzaprine Oral [Active]; Famotidine Oral [Active]; - PMHx: 06:18 Arthritis; Diabetes - NIDDM; Headaches; Hypertension; Hypothyroidism; Fibromyalgia; jw7 psoriasis; - PSHx: 06:18 Cholecystectomy; Ligation of fallopian tube; Tonsillectomy; Total abdominal jw7 hysterectomy; - Immunization history:: Adult Immunizations up to date, 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 - Infectious Disease History:: Denies. - Social history:: Smoking status: Patient denies any tobacco usage or history of. Patient/guardian denies using alcohol, street drugs, IV drugs. Screenin:25 [facility] ED Fall Risk Assessment (Adult) History of falling in the last 3 months, 7 including since admission No falls in past 3 months (0 pts) Confusion or Disorientation No (0 pts) Intoxicated or Sedated No (0 pts) Impaired Gait Yes (1 pt) Mobility Assist Device Used No (0 pt) Altered Elimination No (0 pt) Score/Fall Risk Level 0 - 2 = Low Risk Oriented to surroundings, Maintained a safe environment, Educated pt \\T\\ family on fall prevention, incl call for assistance when getting out of bed. Abuse screen: Denies threats or abuse. Denies injuries from another. Nutritional screening: No deficits noted. Tuberculosis screening: No symptoms or risk factors identified. Assessment: 05:25 General: See Triage Assessment. [facility] 06:29 Reassessment: Patient appears in no apparent distress at this time. No changes from jw7 previously documented assessment. Patient and/or family updated on plan of care and expected duration. Pain level reassessed. Patient is alert, oriented x 3, equal unlabored respirations, skin warm/dry/pink. 06:45 General: Attempted to get patient out of bed per Provider orders, patient unable to sit jw7 up in bed without pain and stated "I can't do it, it hurts too bad". . 08:40 Reassessment: pt ambulatory with walker, symptoms have improved. iw 09:03 Reassessment: pt calling for ride. iw Vital Signs: 05:25 BP 128 / 61; Pulse 88; Resp 20; Temp 98; Pulse Ox 100% ; Weight 78.02 kg; Height 5 ft. jw7 5 in. ; Pain 8/10; 06:15 BP 146 / 80; Pulse 74; Resp 16 S; Pulse Ox 96% on R/A; jw7 09:02 BP 143 / 87; Pulse 74; Resp 16; Temp 98.1; Pulse Ox 100% on R/A; iw 05:25 Body Mass Index 28.62 (78.02 kg, 165.1 cm) jw7 05:25 Pain Scale: Adult jw7 ED Course: 05:19 Patient arrived in ED. jj6 05:21 Stephanie Smith, RN is Primary Nurse. jw7 05:23 Doug Rizo MD is Attending Physician. ec2 05:25 Arm band placed on. jw7 05:25 Patient has correct armband on for positive identification. Bed in low position. Call jw7 light in reach. Side rails up X2. Provided Education on: use of call light. 06:05 Pelvis XRAY In Process Unspecified. EDMS 06:18 Triage completed. jw7 07:05 Report given to ODETTE Marie. jw7 07:09 Attending Physician role handed off by Doug Rizo MD ec2 07:09 Luis Gr DO is Attending Physician. ec2 07:17 CT Lumbar Spine Wo Con In Process Unspecified. EDMS 07:18 Pelvis Wo Cont In Process Unspecified. EDMS 07:36 Cynthia Bsos, RN is Primary Nurse. iw 08:00 Inserted saline lock: 22 gauge in right antecubital area, using aseptic technique. iw 09:03 No provider procedures requiring assistance completed. IV discontinued, intact, iw bleeding controlled, No redness/swelling at site. Pressure dressing applied. Administered Medications: 05:59 Drug: Ketorolac IM 30 mg IM once Route: IM; Site: right deltoid; jw7 06:42 Follow up: Response: No adverse reaction; Marked relief of symptoms jw7 06:00 Drug: Lidoderm Topical Patch 5 % (700 mg/patch) 1 patches Topical once; leave on for 12 jw7 hours; cover most painful area; may cut into smaller pieces Route: Topical; Site: affected area; 06:42 Follow up: Response: No adverse reaction; Marked relief of symptoms jw7 06:00 Drug: Diazepam PO 10 mg PO once Route: PO; jw7 06:42 Follow up: Response: No adverse reaction jw7 07:45 Drug: morphine IVP or IV 4 mg IVP once over 4 mins Route: IVP; Infused Over: 4 mins; iw Site: right antecubital; Outcome: 08:48 Discharge ordered by . ms3 09:21 Patient left the ED. iw Signatures: Dispatcher [employer] Cynthia Diaz RN RN iw Luis Gr DO DO ms3 Marisa Serna jj6 Stephanie Smith RN RN jw7 Doug Rizo MD MD ec2
--- NOTE | 2024-03-28 08:49 | EDPHYS ---
Physician Documentation [facility] Name: Ryann Spence Age: 68 yrs Sex: Female : 1955 Arrival Date: 03/28/2024 Time: 05:17 Bed 13 Private MD: ED Physician Luis Gr HPI: 03/28 05:24 This 68 yrs old Female presents to ER via Unassigned with complaints of Hip ec2 Pain. 05:24 Patient arrives today for evaluation of right hip pain. Patient plaint of right buttock ec2 pain going into the leg. Patient reports that she has not had any falls injuries or trauma. Patient reports no back pain. Patient reports history of psoriatic arthritis. Patient says she has not take medication for the pain.. Historical: - Allergies: 06:18 Sulfa (Sulfonamide Antibiotics); jw7 - Home Meds: 06:18 atorvastatin Oral [Active]; Metoprolol Tartrate Oral [Active]; Metformin Oral [Active]; jw7 Glimepiride Oral [Active]; losartan oral [Active]; venlafaxine oral [Active]; Omeprazole Oral [Active]; levothyroxine oral [Active]; montelukast oral [Active]; Cyclobenzaprine Oral [Active]; Famotidine Oral [Active]; - PMHx: 06:18 Arthritis; Diabetes - NIDDM; Headaches; Hypertension; Hypothyroidism; Fibromyalgia; jw7 psoriasis; - PSHx: 06:18 Cholecystectomy; Ligation of fallopian tube; Tonsillectomy; Total abdominal jw7 hysterectomy; - Immunization history:: Adult Immunizations up to date, 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 - Infectious Disease History:: Denies. - Social history:: Smoking status: Patient denies any tobacco usage or history of. Patient/guardian denies using alcohol, street drugs, IV drugs. ROS: 05:24 Constitutional: as per hpi ec2 Exam: 05:24 Constitutional: GEN: NAD Head: atraumatic Eyes: EOMI Ears: External ears are ec2 normal. CV: regular rate LUNGS: no respiratory distress ABD: non-distended SKIN: no evidence of rashes MSK: no evidence of trauma, right buttock TTP, no C/T/L-spine TTP, no deformities, intact range of motion of the right lower extremity. NEURO: moves all extremities equally Vital Signs: 05:25 BP 128 / 61; Pulse 88; Resp 20; Temp 98; Pulse Ox 100% ; Weight 78.02 kg; Height 5 ft. jw7 5 in. ; Pain 8/10; 06:15 BP 146 / 80; Pulse 74; Resp 16 S; Pulse Ox 96% on R/A; jw7 09:02 BP 143 / 87; Pulse 74; Resp 16; Temp 98.1; Pulse Ox 100% on R/A; iw 05:25 Body Mass Index 28.62 (78.02 kg, 165.1 cm) jw7 05:25 Pain Scale: Adult jw7 MDM: 05:23 Patient medically screened. ec2 05:24 Data reviewed: vital signs. ED course: Patient arrives today for evaluation of right ec2 buttock pain. Examination remarkable for MSK findings as noted above. Will obtain pelvis x-ray. Will treat the patient's pain with Valium, Toradol, Lidoderm patch. Differential diagnosis includes muscular spasm, sciatica, doubt bony fracture.. 06:30 ED course: Pelvis x-ray independently reviewed and interpreted by me, shows no bony ec2 pathology. On reassessment patient is well-appearing in no acute distress. Will attempt to ambulate the patient. . 06:57 ED course: Patient with marked difficulty with ambulation, will obtain CT of the ec2 L-spine to evaluate for spine pathology. Will also give the patient IV morphine.. 07:00 Transition of care: Care assumed from Doug Rizo MD. ms3 07:09 ED course: Patient signed out to oncoming physician with pending CT of the L-spine and ec2 pelvis and pain reassessment.. 08:51 Differential diagnosis: hip fracture, intertrochanteric fracture, femoral neck ms3 fracture, bursitis, arthritis, strain. I considered the following discharge prescriptions or medication management in the emergency department Medications were administered in the Emergency Department. See MAR. Independent interpretation of the following test(s) in the Emergency Department X-Ray: My interpretation is Pelvis x-ray reviewed by me does not reveal fracture. Care significantly affected by the following chronic conditions: Diabetes, Hypertension, Fibromyalgia. Counseling: I had a detailed discussion with the patient and/or guardian regarding the historical points, exam findings, and any diagnostic results supporting the discharge/admit diagnosis, radiology results, the need for outpatient follow up, to return to the emergency department if symptoms worsen or persist or if there are any questions or concerns that arise at home. Special discussion: I discussed with the patient/guardian in detail that at this point there is no indication for admission to the hospital. It is understood, however, that if the symptoms persist or worsen the patient needs to return immediately for re-evaluation. 08:52 ED course: Discussed CT lumbar, CT pelvis, pelvis x-ray results with patient. Patient ms3 to follow-up with her primary care physician in 2 to 3 days. Patient understands and agrees with plan. All questions were answered. Return precautions discussed include worsening condition, fever, shortness of breath, or any other concerns. On reevaluation patient is ambulatory in the emergency department, alert and orient x 4, in no apparent distress, nontoxic-appearing.. 03/28 05:24 Order name: Pelvis XRAY ec2 03/28 06:57 Order name: CT Lumbar Spine Wo Con; Complete Time: 08:43 ec2 03/28 07:13 Order name: Pelvis Wo Cont; Complete Time: 08:43 EDMS 03/28 06:57 Order name: IV Saline Lock; Complete Time: 07:45 ec2 Administered Medications: 05:59 Drug: Ketorolac IM 30 mg IM once Route: IM; Site: right deltoid; jw7 06:42 Follow up: Response: No adverse reaction; Marked relief of symptoms jw7 06:00 Drug: Lidoderm Topical Patch 5 % (700 mg/patch) 1 patches Topical once; leave on for 12 jw7 hours; cover most painful area; may cut into smaller pieces Route: Topical; Site: affected area; 06:42 Follow up: Response: No adverse reaction; Marked relief of symptoms jw7 06:00 Drug: Diazepam PO 10 mg PO once Route: PO; jw7 06:42 Follow up: Response: No adverse reaction jw7 07:45 Drug: morphine IVP or IV 4 mg IVP once over 4 mins Route: IVP; Infused Over: 4 mins; iw Site: right antecubital; Disposition Summary: 03/28/24 08:48 Discharge Ordered Notes: Location: Home ms3 Condition: Stable ms3 Diagnosis - Sciatica, right side ms3 - Buttock Pain ms3 Followup: ec2 - With: Private Physician - When: - Reason: Re-evaluation by your physician Discharge Instructions: - Discharge Summary Sheet ec2 - Sciatica ec2 Forms: - Medication Reconciliation Form ms3 - Antibiotic Education ms3 - Prescription Opioid Use ms3 - Patient Portal Instructions ms3 - Leadership Thank You Letter ms3 Signatures: Dispatcher [employer] [facility] Cynthia Boss RN RN iw Luis Gr, DO ms3 Stephanie Smith RN RN jw7 Doug Rizo MD MD ec2 Corrections: (The following items were deleted from the chart) 06:57 06:57 Spine Lumbar Wo Con+CT.RAD.BRZ ordered. [facility] 07:00 Differential diagnosis: hip fracture, intertrochanteric fracture, femoral neck ms3 fracture, bursitis, arthritis, strain, ms3 07:00 I considered the following discharge prescriptions or medication management in ms3 the emergency department Medications were administered in the Emergency Department. See MAR ms3 07:00 Independent interpretation of the following test(s) in the Emergency Department ms3 X-Ray: My interpretation is Pelvis x-ray reviewed by me does not reveal fracture. ms3 : 07:00 Care significantly affected by the following chronic conditions: Diabetes, ms3 Hypertension, Fibromyalgia. ms3 07:00 Counseling: I had a detailed discussion with the patient and/or guardian ms3 regarding the historical points, exam findings, and any diagnostic results supporting the discharge/admit diagnosis, radiology results, the need for outpatient follow up, to return to the emergency department if symptoms worsen or persist or if there are any questions or concerns that arise at home, ms3 07:00 Special discussion: I discussed with the patient/guardian in detail that at this ms3 point there is no indication for admission to the hospital. It is understood, however, that if the symptoms persist or worsen the patient needs to return immediately for re-evaluation. ms3 07:00 ED course: Discussed CT lumbar, CT pelvis, pelvis x-ray results with patient. ms3 Patient to follow-up with her primary care physician in 2 to 3 days. Patient understands and agrees with plan. All questions were answered. Return precautions discussed include worsening condition, fever, shortness of breath, or any other concerns. On reevaluation patient is ambulatory in the emergency department, alert and orient x 4, in no apparent distress, nontoxic-appearing.. ms3
[2024-03-28 09:33] VITALS: BP 143/87; TEMP 98.1; O2SAT 100
--- NOTE | 2024-03-28 11:37 | RAD REPORT ---
EXAM DESCRIPTION: RAD - Pelvis - 03/28/2024 6:03 am CLINICAL HISTORY: Right hip pain COMPARISON: None TECHNIQUE: Pelvis 1 View FINDINGS: No fracture or dislocation. No significant sclerotic/lytic bone lesion. Joint spaces unremarkable. Small round midlevel right pelvic calcification likely represents phlebolith. IMPRESSION: Unremarkable pelvis radiograph. Electronically signed by: Robert Del Cid MD 03/28/2024 06:20 AM CDT RP Due to temporary technical issues with the PACS/Fluency reporting system, reports are being signed by the in house radiologists without review as a courtesy to insure prompt reporting. The interpreting radiologist is fully responsible for the content of the report
== END 2024-03-28 09:21 | disposition home or self-care (01) ==
LOC: ER 05:17
DX: M54.31 Sciatica, right side (principal)
CPT/HCPCS: 72131; 72192; 72170; 96372; 96374; 99284; J2001